=== PATIENT | female | born 1975 | race American Indian/Alaskan Native ===

== ENCOUNTER 2021-04-24 02:10 | Inpatient (IN) | payer OTHER ==
[2021-04-24 03:49] LABS: Alanine Aminotransferase 25 units/L (7-56); Albumin 5.1 g/dL (3.9-5); Blood Urea Nitrogen 10 mg/dL (7-17); Hemolysis Index 5
[2021-04-24] MEDS ORDERED: ONDANSETRON 4 MG/2 ML INJ IV ONE ×2 (03:56→07:24)
[2021-04-24] MEDS ORDERED: SODIUM CHLORIDE 0.9% 1000 ML 1,000 ML IV ONE ×2 (03:56→07:24)
[2021-04-24] MEDS ORDERED: MORPHINE 4 MG/1 ML INJ IV ONE (03:56)
--- NOTE | 2021-04-24 03:57 | Emergency Department Report ---
HPI - General Chief Complaint: Abdominal Pain Time Seen by Provider: 04/24/21 03:38 - HPI HPI: 45-year-old -[place] female presents to the emergency department with a complaint of middle to upper abdominal pain, nausea and vomiting, that has been going on for the past 3 days. The patient has history of recurrent pancreatitis that usually occurs from alcohol consumption. The patient says that she has not drink any alcohol for the past week. She has not taken anything for symptoms prior to presentation. No recent travel or sick contacts at home. Her abdominal pain is currently 10/10 in intensity. No aggravating or alleviating factors. She denies any dysuria, vaginal bleeding or discharge, fever, chest pain, shortness of breath. ED Past Medical Hx - Past Medical History Previous Medical History?: Yes Additional medical history: Pancreatitis. ETOH abuse - Surgical History Past Surgical History?: Yes Hx Cholecystectomy: Yes Additional Surgical History: . Tubal Ligation. Hernia repair - Social History Smoking Status: Never Smoker Substance Use Type: Alcohol - Medications Home Medications: Home Medications Medication Instructions Recorded Confirmed Last Taken Type No Known Home Medications [No 04/24/21 04/24/21 Unknown History Reported Home Medications] ED Review of Systems ROS: Stated complaint: VOMITING AND SHAKES Other details as noted in HPI Comment: All other systems reviewed and negative Constitutional: denies: chills, fever Eyes: denies: eye pain, vision change ENT: denies: ear pain, throat pain Respiratory: denies: cough, shortness of breath Cardiovascular: denies: chest pain, palpitations Gastrointestinal: abdominal pain, nausea, vomiting Genitourinary: denies: dysuria, discharge Musculoskeletal: denies: back pain, arthralgia Skin: denies: rash, lesions Neurological: denies: headache, weakness Physical Exam - Physical Exam Vital Signs: Vital Signs 04/24/21 02:25 Temperature 98.8 F Pulse Rate 144 H Blood Pressure 156/99 O2 Sat by Pulse 100 Oximetry Physical Exam: GENERAL: The patient is well-developed well-nourished. HENT: Normocephalic. Atraumatic. Patient has moist mucous membranes. EYES: Extraocular motions are intact. NECK: Supple. Trachea is midline. CHEST/LUNGS: Clear to auscultation. There is no respiratory distress noted. HEART/CARDIOVASCULAR: Regular. There is moderate tachycardia. There is no murmur. ABDOMEN: Abdomen is soft. Generalized abdominal tenderness to palpation with upper quadrants greater than lower quadrants. Mild guarding. Patient has normal bowel sounds. There is no abdominal distention. SKIN: Skin is warm and dry. NEURO: The patient is awake, alert, and oriented. The patient is cooperative. The patient has no focal neurologic deficits. Normal speech. MUSCULOSKELETAL: There is no tenderness or deformity. There is no limitation range of motion. ED Course Vital Signs 04/24/21 02:25 Temperature 98.8 F Pulse Rate 144 H Blood Pressure 156/99 O2 Sat by Pulse 100 Oximetry ED Medical Decision Making - Lab Data Result diagrams: 04/24/21 03:06 04/24/21 03:06 Lab Results 04/24/21 04/24/21 Range/Units 03:06 03:06 WBC 9.6 (4.5-11.0) K/mm3 RBC 4.86 (3.65-5.03) M/mm3 Hgb 9.2 L (10.1-14.3) gm/dl Hct 31.1 (30.3-42.9) % MCV 64 L (79-97) fl MCH 19 L (28-32) pg MCHC 29 L (30-34) % RDW 22.3 H (13.2-15.2) % Plt Count 311 (140-440) K/mm3 Lymph % (Auto) Test Center Manager [place] % (Auto) Test Center Manager Eos % (Auto) Test Center Manager Baso % (Auto) Test Center Manager Lymph # (Auto) Test Center Manager [place] # (Auto) Test Center Manager Eos # (Auto) Test Center Manager Baso # (Auto) Test Center Manager Add Manual Diff Complete Total Counted 100 Seg Neutrophils % Test Center Manager Seg Neuts % (Manual) 85.0 H (40.0-70.0) % Lymphocytes % (Manual) 11.0 L (13.4-35.0) % Monocytes % (Manual) 2.0 (0.0-7.3) % Eosinophils % (Manual) 2.0 (0.0-4.3) % Nucleated RBC % Not Reportable Seg Neutrophils # Test Center Manager Seg Neutrophils # Man 8.2 H (1.8-7.7) K/mm3 Band Neutrophils # 0.0 K/mm3 Lymphocytes # (Manual) 1.1 L (1.2-5.4) K/mm3 Abs React Lymphs (Man) 0.0 K/mm3 Monocytes # (Manual) 0.2 (0.0-0.8) K/mm3 Eosinophils # (Manual) 0.2 (0.0-0.4) K/mm3 Basophils # (Manual) 0.0 (0.0-0.1) K/mm3 Metamyelocytes # 0.0 K/mm3 Myelocytes # 0.0 K/mm3 Promyelocytes # 0.0 K/mm3 Blast Cells # 0.0 K/mm3 WBC Morphology Not Reportable Hypersegmented Neuts Not Reportable Hyposegmented Neuts Not Reportable Hypogranular Neuts Not Reportable Smudge Cells Not Reportable Toxic Granulation Not Reportable Toxic Vacuolation Not Reportable Dohle Bodies Not Reportable Pelger-Huet Anomaly Not Reportable Libra Rods Not Reportable Platelet Estimate Consistent w auto Clumped Platelets Not Reportable Plt Clumps, EDTA Not Reportable Large Platelets Not Reportable Giant Platelets Not Reportable Platelet Satelliting Not Reportable Plt Morphology Comment Not Reportable RBC Morphology Not Reportable Dimorphic RBCs Not Reportable Polychromasia Not Reportable Hypochromasia 1+ Poikilocytosis Not Reportable Anisocytosis 1+ Microcytosis 1+ Macrocytosis Not Reportable Spherocytes Not Reportable Pappenheimer Bodies Not Reportable Sickle Cells Not Reportable Target Cells Not Reportable Tear Drop Cells Not Reportable Ovalocytes Not Reportable Helmet Cells Not Reportable [place] Bodies Not Reportable [place] Rings Not Reportable [place] Cells Not Reportable Bite Cells Not Reportable Crenated Cell Not Reportable Elliptocytes Not Reportable Acanthocytes (Spur) Not Reportable Rouleaux Not Reportable Hemoglobin C Crystals Not Reportable Schistocytes Not Reportable Malaria parasites Not Reportable Adam Bodies Not Reportable Hem Pathologist Commnt No Sodium 132 L (137-145) mmol/L Potassium 3.3 L (3.6-5.0) mmol/L Chloride 92.8 L (98-107) mmol/L Carbon Dioxide 18 L (22-30) mmol/L Anion Gap 25 mmol/L BUN 10 (7-17) mg/dL Creatinine 0.6 (0.6-1.2) mg/dL Estimated GFR > 60 ml/min BUN/Creatinine Ratio 17 % Glucose 126 H (65-100) mg/dL Calcium 12.3 H* (8.4-10.2) mg/dL Total Bilirubin 0.60 (0.1-1.2) mg/dL AST 28 (5-40) units/L ALT 25 (7-56) units/L Alkaline Phosphatase 103 (35-129) units/L Total Protein 9.4 H (6.3-8.2) g/dL Albumin 5.1 H (3.9-5) g/dL Albumin/Globulin Ratio 1.2 % Lipase 662 H (13-60) units/L - Radiology Data Radiology results: report reviewed CT abdomen pelvis w con INDICATION / CLINICAL INFORMATION: Abd pain, hx of pancreatitis. TECHNIQUE: Axial CT images were obtained through the abdomen and pelvis after 100 cc of Omnipaque [address] scans at this location are performed using CT dose reduction for ALARA by means of automated exposure control. COMPARISON: None available. FINDINGS: LOWER CHEST: No significant abnormality LIVER: No significant abnormality GALLBLADDER/BILIARY TREE: Cholecystectomy. PANCREAS: Mild diffuse peripancreatic inflammatory stranding and unencapsulated fluid. No organized collection. SPLEEN: No significant a bnormality ADRENALS: No significant abnormality KIDNEYS / URETER: No significant abnormality URINARY BLADDER: No significant abnormality REPRODUCTIVE ORGANS: Uterine fibroid. No suspicious adnexal mass. STOMACH / BOWEL: No significant abnormality. The appendix is normal in caliber. LYMPH NODES: No significant adenopathy. VASCULATURE: No significant abnormality. OTHER: No free air, free fluid, or focal fluid collection is identified. SKELETAL SYSTEM: No acute osseous findings. IMPRESSION: 1. Mild acute interstitial edematous pancreatitis. No organized collection. 2. No other acute abnormality. - Medical Decision Making This patient presents with a 3-day history of progressively worsening abdominal pain, nausea with vomiting. On examination she has reproducible abdominal tenderness to palpation with some mild guarding. Patient also has moderate tac hycardia with an initial triage heart rate of about 140 bpm. Patient's labs shows hypercalcemia with a level of about 12, and elevated lipase of greater than 600. This appears consistent with acute pancreatitis. Patient has been given IV analgesia, IV fluid resuscitation, IV antiemetics. CT of the abdomen pelvis with IV contrast shows acute pancreatitis. No fluid collection. Patient will be admitted to the hospital for further evaluation and treatment was accepted for admission by the hospitalist service. Critical Care Time: No Critical care attestation.: If time is entered above; I have spent that time in minutes in the direct care of this critically ill patient, excluding procedure time. ED Disposition Clinical Impression: Hypokalemia Acute pancreatitis Qualifiers: Pancreatitis type: unspecified pancreatitis type Acute pancreatitis complication: unspecified Qualified Code(s): K85.90 - Acute pancreatitis without necrosis or infection, unspecified Anemia Qualifiers: Anemia type: unspecified type Qualified Code(s): D64.9 - Anemia, unspecified Disposition: 09 ADMITTED INPATIENT Is pt being admited?: No Condition: Fair
[2021-04-24 04:03] LABS: BUN/Creatinine Ratio 17; Calcium 12.3 mg/dL (8.4-10.2)
[2021-04-24 04:22] LABS: Mean Corpuscular HGB Conc 29 % (30-34); Platelet Count 311 K/mm3 (140-440); Red Blood Count 4.86 M/mm3 (3.65-5.03)
[2021-04-24 04:24] LABS: Hematocrit 31.1 % (30.3-42.9); Hemoglobin 9.2 gm/dl (10.1-14.3); Mean Corpuscular Volume 64 fl (79-97)
[2021-04-24 04:25] LABS: Red Cell Distribution Width 22.3 % (13.2-15.2)
[2021-04-24 05:12] LABS: Total Cells Counted 100
[2021-04-24 05:14] LABS: Anisocytosis 1+; Hypochromasia 1+; Platelet Estimate Consistent w Auto
[2021-04-24] MEDS: POTASSIUM CHLORIDE 10 MEQ 10 MEQ/100 ML BAG IV SCH ×2 (05:20→07:31)
--- NOTE | 2021-04-24 06:14 | Cat Scan Report ---
CT abdomen pelvis w con INDICATION / CLINICAL INFORMATION: Abd pain, hx of pancreatitis. TECHNIQUE: Axial CT images were obtained through the abdomen and pelvis after 100 cc of Omnipaque [address] scans at this location are performed using CT dose reduction for ALARA by means of automated exposure control. COMPARISON: None available. FINDINGS: LOWER CHEST: No significant abnormality LIVER: No significant abnormality GALLBLADDER/BILIARY TREE: Cholecystectomy. PANCREAS: Mild diffuse peripancreatic inflammatory stranding and unencapsulated fluid. No organized c ollection. SPLEEN: No significant abnormality ADRENALS: No significant abnormality KIDNEYS / URETER: No significant abnormality URINARY BLADDER: No significant abnormality REPRODUCTIVE ORGANS: Uterine fibroid. No suspicious adnexal mass. STOMACH / BOWEL: No significant abnormality. The appendix is normal in caliber. LYMPH NODES: No significant adenopathy. VASCULATURE: No significant abnormality. OTHER: No free air, free fluid, or focal fluid collection is identified. SKELETAL SYSTEM: No acute osseous findings. IMPRESSION: 1. Mild acute interstitial edematous pancreatitis. No organized collection. 2. No other acute abnormality. Signer Name: George Marcelo MD Signed: 04/24/2021 6:09 AM Workstation Name: [id number]
[2021-04-24] MEDS ORDERED: HYDROmorphone 1 MG/1 ML INJ IV ONE (07:24)
--- NOTE | 2021-04-24 10:41 | History and Physical Report ---
History of Present Illness Date of examination: 04/24/21 Date of admission: 04/24/2021 Chief complaint: Abdominal pain for 3 days History of present illness: 45-year-old female with history of pancreatitis and alcohol abuse comes in for epigastric pain associated with nausea and vomiting. Pain is about 8 on a scale of 1-10. Pain has been going on for the last 3 days. Patient has a history of recurrent pancreatitis. Patient has not been drinking any alcohol for the past 1 week. No recent travel no recent fever. Pain is 0/10 on a scale of 1-10. No shortness of breath. No chest pain. No diarrhea. No exposure to coronavirus. - Past Medical History Previous Medical History?: Yes Additional medical history: Pancreatitis. ETOH abuse - Surgical History Past Surgical History?: Yes --Cholecystectomy: Yes --Additional Surgical History: . Tubal Ligation. Hernia repair Family history Htn - Social History Smoking Status: Never Smoker Substance Use Type: Alcohol - Medications Home Medications: Home Medications Medication Instructions Recorded Confirmed Last Taken Type No Known Home Medications [No 04/24/21 04/24/21 Unknown History Reported Home Medications] Review of Systems ROS: Stated complaint: VOMITING AND SHAKES Other details as noted in HPI Comment: All other systems reviewed and negative Constitutional: denies: chills, fever Eyes: denies: eye pain, vision change ENT: denies: ear pain, throat pain Respiratory: denies: cough, shortness of breath Cardiovascular: denies: chest pain, palpitations Gastrointestinal: abdominal pain, nausea, vomiting Genitourinary: denies: dysuria, discharge Musculoskeletal: denies: back pain, arthralgia Skin: denies: rash, lesions Neurological: denies: headache, weakness Medications and Allergies Allergies Allergy/AdvReac Type Severity Reaction Status Date / Time No Known Allergies Allergy Unverified 04/24/21 02:47 Home Medications Medication Instructions Recorded Confirmed Last Taken Type No Known Home Medications [No 04/24/21 04/24/21 Unknown History Reported Home Medications] Exam - Constitutional Vitals: Temp Pulse Resp BP Pulse Ox 98.6 F 108 H 13 156/99 100 04/24/21 08:47 04/24/21 08:47 04/24/21 08:47 04/24/21 02:25 04/24/21 08:47 General appearance: Present: mild distress, well-nourished - EENT Eyes: Present: PERRL ENT: hearing intact, clear oral mucosa - Neck Neck: Present: supple, normal ROM - Respiratory Respiratory effort: normal Respiratory: bilateral: CTA - Cardiovascular Heart rate: 78 Rhythm: regular Heart Sounds: Present: S1 & S2. Absent: rub, click - Extremities Extremities: pulses symmetrical, No edema Peripheral Pulses: within normal limits - Abdominal General gastrointestinal: Present: tender, non-distended, normal bowel sounds Localized gastrointestinal: tender: diffuse, guarding: diffuse Female genitourinary: Present: normal - Rectal Rectal Exam: deferred - Integumentary Integumentary: Present: clear, warm, dry - Musculoskeletal Musculoskeletal: gait normal, strength equal bilaterally - Psychiatric Psychiatric: appropriate mood/affect, intact judgment & insight - Neurologic Neurologic: CNII-XII intact, moves all extremities - Allied Health Allied health notes reviewed: nursing Results - Labs CBC & Chem 7: 04/25/21 04:34 04/25/21 04:34 Labs: Laboratory Last Values WBC 9.6 K/mm3 (4.5-11.0) 04/24/21 03:06 RBC 4.86 M/mm3 (3.65-5.03) 04/24/21 03:06 Hgb 9.2 gm/dl (10.1-14.3) L 04/24/21 03:06 Hct 31.1 % (30.3-42.9) 04/24/21 03:06 MCV 64 fl (79-97) L 04/24/21 03:06 MCH 19 pg (28-32) L 04/24/21 03:06 MCHC 29 % (30-34) L 04/24/21 03:06 RDW 22.3 % (13.2-15.2) H 04/24/21 03:06 Plt Count 311 K/mm3 (140-440) 04/24/21 03:06 Lymph % (Auto) [facility] Profession[facility] 04/24/21 03:06 [place] % (Auto) [facility] 04/24/21 03:06 Eos % (Auto) [facility] 04/24/21 03:06 Baso % (Auto) [facility] 04/24/21 03:06 Lymph # (Auto) [facility] 04/24/21 03:06 [place] # (Auto) [facility] 04/24/21 03:06 Eos # (Auto) [facility] 04/24/21 03:06 Baso # (Auto) [facility] 04/24/21 03:06 Add Manual Diff Complete 04/24/21 03:06 Total Counted 100 04/24/21 03:06 Seg Neutrophils % [facility] 04/24/21 03:06 Seg Neuts % (Manual) 85.0 % (40.0-70.0) H 04/24/21 03:06 Lymphocytes % (Manual) 11.0 % (13.4-35.0) L 04/24/21 03:06 Monocytes % (Manual) 2.0 % (0.0-7.3) 04/24/21 03:06 Eosinophils % (Manual) 2.0 % (0.0-4.3) 04/24/21 03:06 Nucleated RBC % Not Reportable 04/24/21 03:06 Seg Neutrophils # [facility] 04/24/21 03:06 Seg Neutrophils # Man 8.2 K/mm3 (1.8-7.7) H 04/24/21 03:06 Band Neutrophils # 0.0 K/mm3 04/24/21 03:06 Lymphocytes # (Manual) 1.1 K/mm3 (1.2-5.4) L 04/24/21 03:06 Abs React Lymphs (Man) 0.0 K/mm3 04/24/21 03:06 Monocytes # (Manual) 0.2 K/mm3 (0.0-0.8) 04/24/21 03:06 Eosinophils # (Manual) 0.2 K/mm3 (0.0-0.4) 04/24/21 03:06 Basophils # (Manual) 0.0 K/mm3 (0.0-0.1) 04/24/21 03:06 Metamyelocytes # 0.0 K/mm3 04/24/21 03:06 Myelocytes # 0.0 K/mm3 04/24/21 03:06 Promyelocytes # 0.0 K/mm3 04/24/21 03:06 Blast Cells # 0.0 K/mm3 04/24/21 03:06 WBC Morphology Not Reportable 04/24/21 03:06 Hypersegmented Neuts Not Reportable 04/24/21 03:06 Hyposegmented Neuts Not Reportable 04/24/21 03:06 Hypogranular Neuts Not Reportable 04/24/21 03:06 Smudge Cells Not Reportable 04/24/21 03:06 Toxic Granulation Not Reportable 04/24/21 03:06 Toxic Vacuolation Not Reportable 04/24/21 03:06 Dohle Bodies Not Reportable 04/24/21 03:06 Pelger-Huet Anomaly Not Reportable 04/24/21 03:06 Libra Rods Not Reportable 04/24/21 03:06 Platelet Estimate Consistent w auto 04/24/21 03:06 Clumped Platelets Not Reportable 04/24/21 03:06 Plt Clumps, EDTA Not Reportable 04/24/21 03:06 Large Platelets Not Reportable 04/24/21 03:06 Giant Platelets Not Reportable 04/24/21 03:06 Platelet Satelliting Not Reportable 04/24/21 03:06 Plt Morphology Comment Not Reportable 04/24/21 03:06 RBC Morphology Not Reportable 04/24/21 03:06 Dimorphic RBCs Not Reportable 04/24/21 03:06 Polychromasia Not Reportable 04/24/21 03:06 Hypochromasia 1+ 04/24/21 03:06 Poikilocytosis Not Reportable 04/24/21 03:06 Anisocytosis 1+ 04/24/21 03:06 Microcytosis 1+ 04/24/21 03:06 Macrocytosis Not Reportable 04/24/21 03:06 Spherocytes Not Reportable 04/24/21 03:06 Pappenheimer Bodies Not Reportable 04/24/21 03:06 Sickle Cells Not Reportable 04/24/21 03:06 Target Cells Not Reportable 04/24/21 03:06 Tear Drop Cells Not Reportable 04/24/21 03:06 Ovalocytes Not Reportable 04/24/21 03:06 Helmet Cells Not Reportable 04/24/21 03:06 [place] Bodies Not Reportable 04/24/21 03:06 [place] Rings Not Reportable 04/24/21 03:06 [place] Cells Not Reportable 04/24/21 03:06 Bite Cells Not Reportable 04/24/21 03:06 Crenated Cell Not Reportable 04/24/21 03:06 Elliptocytes Not Reportable 04/24/21 03:06 Acanthocytes (Spur) Not Reportable 04/24/21 03:06 Rouleaux Not Reportable 04/24/21 03:06 Hemoglobin C Crystals Not Reportable 04/24/21 03:06 Schistocytes Not Reportable 04/24/21 03:06 Malaria parasites Not Reportable 04/24/21 03:06 Adam Bodies Not Reportable 04/24/21 03:06 Hem Pathologist Commnt No 04/24/21 03:06 Sodium 132 mmol/L (137-145) L 04/24/21 03:06 Potassium 3.3 mmol/L (3.6-5.0) L 04/24/21 03:06 Chloride 92.8 mmol/L (98-107) L 04/24/21 03:06 Carbon Dioxide 18 mmol/L (22-30) L 04/24/21 03:06 Anion Gap 25 mmol/L 04/24/21 03:06 BUN 10 mg/dL (7-17) 04/24/21 03:06 Creatinine 0.6 mg/dL (0.6-1.2) 04/24/21 03:06 Estimated GFR > 60 ml/min 04/24/21 03:06 BUN/Creatinine Ratio 17 % 04/24/21 03:06 Glucose 126 mg/dL (65-100) H 04/24/21 03:06 Calcium 12.3 mg/dL (8.4-10.2) H* 04/24/21 03:06 Total Bilirubin 0.60 mg/dL (0.1-1.2) 04/24/21 03:06 AST 28 units/L (5-40) 04/24/21 03:06 ALT 25 units/L (7-56) 04/24/21 03:06 Alkaline Phosphatase 103 units/L (35-129) 04/24/21 03:06 Total Protein 9.4 g/dL (6.3-8.2) H 04/24/21 03:06 Albumin 5.1 g/dL (3.9-5) H 04/24/21 03:06 Albumin/Globulin Ratio 1.2 % 04/24/21 03:06 Lipase 662 units/L (13-60) H 04/24/21 03:06 Short CBC 04/25/21 Range/Units 04:34 WBC 5.1 (4.5-11.0) K/mm3 Hgb 7.5 L (10.1-14.3) gm/dl Hct 25.2 L (30.3-42.9) % Plt Count 171 (140-440) K/mm3 BMP 04/25/21 04:34 Sodium 137 Potassium 3.0 L Chloride 101.8 Carbon Dioxide 23 BUN 7 Creatinine 0.4 L Glucose 113 H Calcium 10.3 H D Liver Function 04/25/21 Range/Units 04:34 Total Bilirubin 0.40 (0.1-1.2) mg/dL AST 18 (5-40) units/L ALT 15 (7-56) units/L Alkaline Phosphatase 76 (35-129) units/L Albumin 3.7 L (3.9-5) g/dL Urine 04/24/21 Range/Units Unknown Urine Color Red (Yellow) Urine pH 6.0 (5.0-7.0) Ur Specific [place] 1.060 H (1.003-1.030) Urine Protein 100 mg/dl (Negative) mg/dL Urine Glucose (UA) 50 (Negative) mg/dL - Imaging and Cardiology CT scan - abdomen: report reviewed Imaging and Cardiology: Abdominal CAT scan Mild acute interstitial edematous pancreatitis no evidence collection no other acute abnormality Assessment and Plan Advance Directives: Yes (Full code) VTE prophylaxis?: Chemical Plan of care discussed with patient/family: Yes - Patient Problems (1) Acute pancreatitis Current Visit: Yes Status: Acute Qualifiers: Pancreatitis type: unspecified pancreatitis type Acute pancreatitis complication: unspecified Qualified Code(s): K85.90 - Acute pancreatitis without necrosis or infection, unspecified Plan to address problem: Pain management Keep the patient n.p.o. IV fluids for now Recheck lipase levels (2) Hypokalemia Current Visit: Yes Status: Acute Plan to address problem: Supplemented (3) Anemia Current Visit: Yes Status: Chronic Qualifiers: Anemia type: unspecified type Qualified Code(s): D64.9 - Anemia, unspecified Plan to address problem: Anemia work-up Probable iron deficiency anemia Patient has microcytosis (4) Hypercalcemia Current Visit: Yes Status: Acute Plan to address problem: IV fluids for now Recheck calcium level (5) Hyponatremia Current Visit: Yes Status: Acute Plan to address problem: IV normal saline for now (6) DVT prophylaxis Current Visit: Yes Status: Acute Plan to address problem: On heparin and GI prophylaxis
[2021-04-24] MEDS ORDERED: ACETAMINOPHEN 325 MG TAB PO PRN (10:54)
[2021-04-24] MEDS ORDERED: ONDANSETRON 4 MG/2 ML INJ IV PRN (10:54)
[2021-04-24] MEDS ORDERED: METOCLOPRAMIDE 10 MG/2 ML INJ IV PRN (10:54)
[2021-04-24] MEDS ORDERED: HYDROmorphone 1 MG/1 ML INJ IV PRN (10:54)
[2021-04-24 12:14] LABS: Bacteria,Urine 4+ /HPF (Negative); Bilirubin,Urine NEG (Negative); Blood,Urine LG (Negative); Color,Urine Red (Yellow); Urobilinogen,Urine < 2.0 mg/dL (<2.0)
[2021-04-24] MEDS: FAMOTIDINE 20 MG/2 ML INJ IV SCH ×2 (12:29→21:43)
[2021-04-24] MEDS: HEPARIN 5,000 UNIT/1 ML VIAL SUB-Q SCH ×2 (12:29→21:44)
[2021-04-24] MEDS: MORPHINE 2 MG/1 ML INJ IV PRN ×2 (12:29→16:39)
[2021-04-24 12:49] LABS: RBC,Urine > 182.0 /HPF (0.0-6.0); WBC,Urine < 1.0 /HPF (0.0-6.0)
[2021-04-24] MEDS ORDERED: hydrALAZINE 20 MG/1 ML INJ IV PRN (14:22)
[2021-04-24] MEDS ORDERED: cloNIDine TTS 0.2 MG/24 HR PATCH TD SCH (15:00)
[2021-04-24] MEDS ORDERED: LORazepam 2 MG/ML VIAL IV PRN (19:40)
[2021-04-24] MEDS: D5W/0.9% NACL 1,000 ML IV SCH (21:43)
[2021-04-25 05:15] LABS: Hematocrit 25.2 % (30.3-42.9); Hemoglobin 7.5 gm/dl (10.1-14.3); Mean Corpuscular HGB Conc 30 % (30-34); Red Blood Count 3.98 M/mm3 (3.65-5.03)
[2021-04-25 05:16] LABS: Basophils % (Auto) 0.5 % (0.0-1.8); Eosinophils % (Auto) 0.3 % (0.0-4.3); Lymphocytes % (Auto) 20.2 % (13.4-35.0); Monocytes # (Auto) 0.5 K/mm3 (0.0-0.8); Monocytes % (Auto) 10.7 % (0.0-7.3); Platelet Count 171 K/mm3 (140-440)
[2021-04-25 05:21] LABS: Mean Corpuscular Volume 63 fl (79-97); Red Cell Distribution Width 22.7 % (13.2-15.2)
[2021-04-25 06:03] LABS: Alanine Aminotransferase 15 units/L (7-56); Albumin 3.7 g/dL (3.9-5); Blood Urea Nitrogen 7 mg/dL (7-17); Calcium 10.3 mg/dL (8.4-10.2); Hemolysis Index 1
[2021-04-25 06:07] LABS: BUN/Creatinine Ratio 18
[2021-04-25] MEDS ORDERED: LORazepam 2 MG/ML VIAL IV PRN (06:41)
[2021-04-25] MEDS: FAMOTIDINE 20 MG/2 ML INJ IV SCH ×2 (09:45→22:53)
[2021-04-25] MEDS: HEPARIN 5,000 UNIT/1 ML VIAL SUB-Q SCH ×2 (09:45→22:53)
[2021-04-25] MEDS: MORPHINE 2 MG/1 ML INJ IV PRN ×2 (09:45→15:26)
[2021-04-25] MEDS: D5W/0.9% NACL 1,000 ML IV SCH (09:46)
[2021-04-25 09:57] LABS: % Iron Saturation 2.39 %
--- NOTE | 2021-04-25 10:46 | Progress Note ---
Assessment and Plan Assessment and plan: --Acute pancreatitis Current Visit: Yes Status: Acute Continue sips of water ,pain management IV fluids, check lipase levels and LFTs Consider GI evaluation if no improvement --Hypokalemia Current Visit: Yes Status: Acute Replenished with KCl monitor electrolytes --Anemia Current Visit: Yes Status: Chronic Anemia work-up Closely monitor H&H and transfuse as needed -- Hypercalcemia Current Visit: Yes Status: Acute Due to dehydration continue IV fluids Closely monitor calcium levels -- Hyponatremia Current Visit: Yes Status: Acute Resolved , continue IV normal saline , monitor electrolytes --History of alcohol use; Current Visit: Yes Status: Chronic Advised to quit alcohol intake, Closely monitor for any withdrawal symptoms And consider CIWA protocol if needed --DVT prophylaxis Current Visit: Yes Status: Acute On heparin and GI prophylaxis Closely monitor patient and adjust management as needed Plan of care reviewed with the patient and her nurse History Interval history: I seen and examined the patient at the bedside Patient's chart and medications reviewed Patient complains of some abdominal pain Hospitalist Physical - Constitutional Vitals: Temp Pulse Resp BP Pulse Ox 98.2 F 124 H 20 138/96 100 04/25/21 08:18 04/25/21 08:18 04/25/21 08:18 04/25/21 08:18 04/25/21 08:18 General appearance: Present: mild distress, well-nourished - EENT Eyes: Present: PERRL, EOM intact - Neck Neck: Present: supple, normal ROM - Respiratory Respiratory effort: normal Respiratory: bilateral: diminished, negative: rales, rhonchi, wheezing - Cardiovascular Rhythm: regular Heart Sounds: Present: S1 & S2 - Extremities Extremities: no ischemia, No edema - Abdominal General gastrointestinal: soft, tender (No guarding no rigidity), normal bowel sounds - Integumentary Integumentary: Present: clear, warm - Psychiatric Psychiatric: appropriate mood/affect, cooperative - Neurologic Neurologic: CNII-XII intact, moves all extremities Results - Labs CBC & Chem 7: 04/25/21 04:34 04/25/21 04:34 Labs: Laboratory Last Values WBC 5.1 K/mm3 (4.5-11.0) 04/25/21 04:34 RBC 3.98 M/mm3 (3.65-5.03) 04/25/21 04:34 Hgb 7.5 gm/dl (10.1-14.3) L 04/25/21 04:34 Hct 25.2 % (30.3-42.9) L 04/25/21 04:34 MCV 63 fl (79-97) L 04/25/21 04:34 MCH 19 pg (28-32) L 04/25/21 04:34 MCHC 30 % (30-34) 04/25/21 04:34 RDW 22.7 % (13.2-15.2) H 04/25/21 04:34 Plt Count 171 K/mm3 (140-440) 04/25/21 04:34 Lymph % (Auto) 20.2 % (13.4-35.0) 04/25/21 04:34 [place] % (Auto) 10.7 % (0.0-7.3) H 04/25/21 04:34 Eos % (Auto) 0.3 % (0.0-4.3) 04/25/21 04:34 Baso % (Auto) 0.5 % (0.0-1.8) 04/25/21 04:34 Lymph # (Auto) 1.0 K/mm3 (1.2-5.4) L 04/25/21 04:34 [place] # (Auto) 0.5 K/mm3 (0.0-0.8) 04/25/21 04:34 Eos # (Auto) 0.0 K/mm3 (0.0-0.4) 04/25/21 04:34 Baso # (Auto) 0.0 K/mm3 (0.0-0.1) 04/25/21 04:34 Add Manual Diff Complete 04/24/21 03:06 Total Counted 100 04/24/21 03:06 Seg Neutrophils % 68.3 % (40.0-70.0) 04/25/21 04:34 Seg Neuts % (Manual) 85.0 % (40.0-70.0) H 04/24/21 03:06 Lymphocytes % (Manual) 11.0 % (13.4-35.0) L 04/24/21 03:06 Monocytes % (Manual) 2.0 % (0.0-7.3) 04/24/21 03:06 Eosinophils % (Manual) 2.0 % (0.0-4.3) 04/24/21 03:06 Nucleated RBC % Not Reportable 04/24/21 03:06 Seg Neutrophils # 3.5 K/mm3 (1.8-7.7) 04/25/21 04:34 Seg Neutrophils # Man 8.2 K/mm3 (1.8-7.7) H 04/24/21 03:06 Band Neutrophils # 0.0 K/mm3 04/24/21 03:06 Lymphocytes # (Manual) 1.1 K/mm3 (1.2-5.4) L 04/24/21 03:06 Abs React Lymphs (Man) 0.0 K/mm3 04/24/21 03:06 Monocytes # (Manual) 0.2 K/mm3 (0.0-0.8) 04/24/21 03:06 Eosinophils # (Manual) 0.2 K/mm3 (0.0-0.4) 04/24/21 03:06 Basophils # (Manual) 0.0 K/mm3 (0.0-0.1) 04/24/21 03:06 Metamyelocytes # 0.0 K/mm3 04/24/21 03:06 Myelocytes # 0.0 K/mm3 04/24/21 03:06 Promyelocytes # 0.0 K/mm3 04/24/21 03:06 Blast Cells # 0.0 K/mm3 04/24/21 03:06 WBC Morphology Not Reportable 04/24/21 03:06 Hypersegmented Neuts Not Reportable 04/24/21 03:06 Hyposegmented Neuts Not Reportable 04/24/21 03:06 Hypogranular Neuts Not Reportable 04/24/21 03:06 Smudge Cells Not Reportable 04/24/21 03:06 Toxic Granulation Not Reportable 04/24/21 03:06 Toxic Vacuolation Not Reportable 04/24/21 03:06 Dohle Bodies Not Reportable 04/24/21 03:06 Pelger-Huet Anomaly Not Reportable 04/24/21 03:06 Libra Rods Not Reportable 04/24/21 03:06 Platelet Estimate Consistent w auto 04/24/21 03:06 Clumped Platelets Not Reportable 04/24/21 03:06 Plt Clumps, EDTA Not Reportable 04/24/21 03:06 Large Platelets Not Reportable 04/24/21 03:06 Giant Platelets Not Reportable 04/24/21 03:06 Platelet Satelliting Not Reportable 04/24/21 03:06 Plt Morphology Comment Not Reportable 04/24/21 03:06 RBC Morphology Not Reportable 04/24/21 03:06 Dimorphic RBCs Not Reportable 04/24/21 03:06 Polychromasia Not Reportable 04/24/21 03:06 Hypochromasia 1+ 04/24/21 03:06 Poikilocytosis Not Reportable 04/24/21 03:06 Anisocytosis 1+ 04/24/21 03:06 Microcytosis 1+ 04/24/21 03:06 Macrocytosis Not Reportable 04/24/21 03:06 Spherocytes Not Reportable 04/24/21 03:06 Pappenheimer Bodies Not Reportable 04/24/21 03:06 Sickle Cells Not Reportable 04/24/21 03:06 Target Cells Not Reportable 04/24/21 03:06 Tear Drop Cells Not Reportable 04/24/21 03:06 Ovalocytes Not Reportable 04/24/21 03:06 Helmet Cells Not Reportable 04/24/21 03:06 [place] Bodies Not Reportable 04/24/21 03:06 [place] Rings Not Reportable 04/24/21 03:06 [place] Cells Not Reportable 04/24/21 03:06 Bite Cells Not Reportable 04/24/21 03:06 Crenated Cell Not Reportable 04/24/21 03:06 Elliptocytes Not Reportable 04/24/21 03:06 Acanthocytes (Spur) Not Reportable 04/24/21 03:06 Rouleaux Not Reportable 04/24/21 03:06 Hemoglobin C Crystals Not Reportable 04/24/21 03:06 Schistocytes Not Reportable 04/24/21 03:06 Malaria parasites Not Reportable 04/24/21 03:06 [place] Bodies Not Reportable 04/24/21 03:06 Hem Pathologist Commnt No 04/24/21 03:06 Sodium 137 mmol/L (137-145) 04/25/21 04:34 Potassium 3.0 mmol/L (3.6-5.0) L 04/25/21 04:34 Chloride 101.8 mmol/L (98-107) 04/25/21 04:34 Carbon Dioxide 23 mmol/L (22-30) 04/25/21 04:34 Anion Gap 15 mmol/L 04/25/21 04:34 BUN 7 mg/dL (7-17) 04/25/21 04:34 Creatinine 0.4 mg/dL (0.6-1.2) L 04/25/21 04:34 Estimated GFR > 60 ml/min 04/25/21 04:34 BUN/Creatinine Ratio 18 % 04/25/21 04:34 Glucose 113 mg/dL (65-100) H 04/25/21 04:34 Calcium 10.3 mg/dL (8.4-10.2) H D 04/25/21 04:34 Iron 7 ug/dL (37-170) L 04/25/21 08:57 TIBC 293 mcg/dL (250-450) 04/25/21 08:57 % Saturation 2.39 % 04/25/21 08:57 Transferrin 260 mg/dl (192-382) 04/25/21 08:57 Total Bilirubin 0.40 mg/dL (0.1-1.2) 04/25/21 04:34 AST 18 units/L (5-40) 04/25/21 04:34 ALT 15 units/L (7-56) 04/25/21 04:34 Alkaline Phosphatase 76 units/L (35-129) 04/25/21 04:34 Total Protein 7.5 g/dL (6.3-8.2) D 04/25/21 04:34 Albumin 3.7 g/dL (3.9-5) L 04/25/21 04:34 Albumin/Globulin Ratio 1.0 % 04/25/21 04:34 Lipase 662 units/L (13-60) H 04/24/21 03:06 Vitamin B12 366.1 pg/mL (211-911) 04/25/21 08:57 Urine Color Red (Yellow) 04/24/21 Unknown Urine Turbidity Clear (Clear) 04/24/21 Unknown Urine pH 6.0 (5.0-7.0) 04/24/21 Unknown Ur Specific [place] 1.060 (1.003-1.030) H 04/24/21 Unknown Urine Protein 100 mg/dl mg/dL (Negative) 04/24/21 Unknown Urine Glucose (UA) 50 mg/dL (Negative) 04/24/21 Unknown Urine Ketones Tr mg/dL (Negative) 04/24/21 Unknown Urine Blood Lg (Negative) 04/24/21 Unknown Urine Nitrite Neg (Negative) 04/24/21 Unknown Urine Bilirubin Neg (Negative) 04/24/21 Unknown Urine Urobilinogen < 2.0 mg/dL (<2.0) 04/24/21 Unknown Ur Leukocyte Esterase Neg (Negative) 04/24/21 Unknown Urine WBC (Auto) < 1.0 /HPF (0.0-6.0) 04/24/21 Unknown Urine RBC (Auto) > 182.0 /HPF (0.0-6.0) 04/24/21 Unknown U Epithel Cells (Auto) 4.0 /HPF (0-13.0) 04/24/21 Unknown Urine Bacteria (Auto) 4+ /HPF (Negative) 04/24/21 Unknown Cosme/IV: Voiding Method Toilet Active Medications - Current Medications Current Medications: Generic Name Dose Route Start Last Admin Trade Name Freq PRN Reason Stop Dose Admin Acetaminophen 650 mg 04/24/21 10:54 Acetaminophen 325 Mg Tab PO Q4H PRN Pain MILD(1-3)/Fever >100.5/MERAZ Clonidine HCl 0.2 mg 04/24/21 15:00 04/24/21 16:39 Clonidine Tts 0.2 Mg/24 Hr Patch TD 0.2 mg QWEEK ERICKA Administration Famotidine 20 mg 04/24/21 12:00 04/25/21 09:45 Famotidine 20 Mg/2 Ml Inj IV 20 mg BID ERICKA Administration Heparin Sodium (Porcine) 5,000 unit 04/24/21 12:00 04/25/21 09:45 Heparin 5,000 Unit/1 Ml Vial SUB-Q 5,000 unit Q12HR ERICKA Administration Hydralazine HCl 10 mg 04/24/21 14:22 Hydralazine 20 Mg/1 Ml Inj IV Q3H PRN Blood Pressure Hydromorphone HCl 1 mg 04/24/21 10:54 Hydromorphone 1 Mg/1 Ml Inj IV Q3H PRN Pain , Severe (7-10) Dextrose/Sodium Chloride 1,000 mls @ 100 mls/hr 04/24/21 11:00 04/25/21 09:46 D5ns IV 100 mls/hr DIRECT ERICKA Administration Lorazepam 2 mg 04/25/21 06:41 Lorazepam 2 Mg/Ml Vial IV Q1H PRN CIWA-Ar 8-15 Metoclopramide HCl 10 mg 04/24/21 10:54 Metoclopramide 10 Mg/2 Ml Inj IV Q6H PRN Nausea And Vomiting Morphine Sulfate 2 mg 04/24/21 10:54 04/25/21 09:45 Morphine 2 Mg/1 Ml Inj IV 2 mg Q4H PRN Administration Pain, Moderate (4-6) Ondansetron HCl 4 mg 04/24/21 12:00 Ondansetron 4 Mg/2 Ml Inj IV Q6H PRN Nausea And Vomiting Potassium Chloride 40 meq 04/25/21 11:00 Potassium Chloride Er 20 Meq Tab PO 04/25/21 14:01 Q3H ERICKA Sodium Chloride 10 ml 04/24/21 22:00 04/25/21 09:46 Sodium Chloride 0.9% 10 Ml Flush Syringe IV 10 ml BID ERICKA Administration Sodium Chloride 10 ml 04/24/21 10:54 Sodium Chloride 0.9% 10 Ml Flush Syringe IV PRN PRN LINE FLUSH
[2021-04-25] MEDS: POTASSIUM CHLORIDE ER 20 MEQ TAB PO SCH ×2 (15:26→17:55)
[2021-04-25] MEDS ORDERED: MAGNESIUM SULFATE 4 GM/100 ML BAG IV ONE (17:55)
[2021-04-25] MEDS: MAGNESIUM SULFATE 2 GM/50 ML BAG IV SCH ×2 (18:39→21:04)
[2021-04-25] MEDS: ONDANSETRON 4 MG/2 ML INJ IV PRN (18:40)
[2021-04-26] MEDS: D5W/0.9% NACL 1,000 ML IV SCH ×3 (00:02→18:27)
[2021-04-26] MEDS: ONDANSETRON 4 MG/2 ML INJ IV PRN ×3 (02:02→21:37)
[2021-04-26] MEDS: MORPHINE 2 MG/1 ML INJ IV PRN (04:06)
[2021-04-26 05:59] LABS: Blood Urea Nitrogen 3 mg/dL (7-17); Calcium 10.4 mg/dL (8.4-10.2); Hemolysis Index 7
[2021-04-26 06:07] LABS: BUN/Creatinine Ratio 8
--- NOTE | 2021-04-26 09:20 | Progress Note ---
Assessment and Plan Assessment and plan: --Acute pancreatitis Current Visit: Yes Status: Acute lipase levels trending down from 662 - 433-351 Continue clear liquids GI consult and supportive care --Hypokalemia Current Visit: Yes Status: Acute Potassium today 3.1, 40 mEq of KCl every 3 hours x2 Magnesium levels normal limits --Hypomagnesemia; Current Visit: Yes Status: Acute Mg 1.2 yesterday, replaced by magnesium sulfate Levels are normal range today at 1.9 --Anemia Current Visit: Yes Status: Chronic Anemia work-up Closely monitor H&H and transfuse as needed -- Hypercalcemia Current Visit: Yes Status: Acute Calcium levels trending down 12.3 -10.3-10.4 Plenty oral fluids, continue IV hydration Closely monitor electrolytes -- Hyponatremia Current Visit: Yes Status: Acute Resolved , continue IV normal saline , --History of alcohol use; Current Visit: Yes Status: Chronic Advised to quit alcohol intake, Closely monitor for any withdrawal symptoms And consider CIWA protocol if needed --DVT prophylaxis Current Visit: Yes Status: Acute On heparin and GI prophylaxis Closely monitor patient and adjust management as needed Plan of care reviewed with the patient and her nurse Daily hospital course; 45-year-old female patient with history of chronic alcohol use was admitted with acute pancreatitis and multiple electrolyte imbalances, patient feels slightly better , GI consulted, 04/26/2021; Follow GI consult, follow lipase and LFTs Continue clear liquids, supportive care Potassium corrected with KCl History Interval history: I have seen and examined the patient at the bedside patient's chart and medications reviewed Patient feels slightly better still has some abdominal pain Denies nausea vomiting Hospitalist Physical - Constitutional Vitals: Temp Pulse Resp BP Pulse Ox 98.7 F 103 H 20 151/102 100 04/26/21 07:50 04/26/21 07:50 04/26/21 07:50 04/26/21 07:50 04/26/21 07:50 General appearance: Present: no acute distress, well-nourished - EENT Eyes: Present: PERRL, EOM intact - Neck Neck: Present: supple, normal ROM - Respiratory Respiratory effort: normal Respiratory: bilateral: diminished, negative: rales, rhonchi, wheezing - Cardiovascular Rhythm: regular Heart Sounds: Present: S1 & S2 - Extremities Extremities: no ischemia, No edema - Abdominal General gastrointestinal: soft, non-tender, tender (Mild tenderness no guarding no rigidity), non-distended, normal bowel sounds - Integumentary Integumentary: Present: clear, warm - Psychiatric Psychiatric: appropriate mood/affect, cooperative - Neurologic Neurologic: CNII-XII intact, moves all extremities Results - Labs CBC & Chem 7: 04/25/21 04:34 04/26/21 05:01 Labs: Laboratory Last Values WBC 5.1 K/mm3 (4.5-11.0) 04/25/21 04:34 RBC 3.98 M/mm3 (3.65-5.03) 04/25/21 04:34 Hgb 7.5 gm/dl (10.1-14.3) L 04/25/21 04:34 Hct 25.2 % (30.3-42.9) L 04/25/21 04:34 MCV 63 fl (79-97) L 04/25/21 04:34 MCH 19 pg (28-32) L 04/25/21 04:34 MCHC 30 % (30-34) 04/25/21 04:34 RDW 22.7 % (13.2-15.2) H 04/25/21 04:34 Plt Count 171 K/mm3 (140-440) 04/25/21 04:34 Lymph % (Auto) 20.2 % (13.4-35.0) 04/25/21 04:34 [place] % (Auto) 10.7 % (0.0-7.3) H 04/25/21 04:34 Eos % (Auto) 0.3 % (0.0-4.3) 04/25/21 04:34 Baso % (Auto) 0.5 % (0.0-1.8) 04/25/21 04:34 Lymph # (Auto) 1.0 K/mm3 (1.2-5.4) L 04/25/21 04:34 [place] # (Auto) 0.5 K/mm3 (0.0-0.8) 04/25/21 04:34 Eos # (Auto) 0.0 K/mm3 (0.0-0.4) 04/25/21 04:34 Baso # (Auto) 0.0 K/mm3 (0.0-0.1) 04/25/21 04:34 Add Manual Diff Complete 04/24/21 03:06 Total Counted 100 04/24/21 03:06 Seg Neutrophils % 68.3 % (40.0-70.0) 04/25/21 04:34 Seg Neuts % (Manual) 85.0 % (40.0-70.0) H 04/24/21 03:06 Lymphocytes % (Manual) 11.0 % (13.4-35.0) L 04/24/21 03:06 Monocytes % (Manual) 2.0 % (0.0-7.3) 04/24/21 03:06 Eosinophils % (Manual) 2.0 % (0.0-4.3) 04/24/21 03:06 Nucleated RBC % Not Reportable 04/24/21 03:06 Seg Neutrophils # 3.5 K/mm3 (1.8-7.7) 04/25/21 04:34 Seg Neutrophils # Man 8.2 K/mm3 (1.8-7.7) H 04/24/21 03:06 Band Neutrophils # 0.0 K/mm3 04/24/21 03:06 Lymphocytes # (Manual) 1.1 K/mm3 (1.2-5.4) L 04/24/21 03:06 Abs React Lymphs (Man) 0.0 K/mm3 04/24/21 03:06 Monocytes # (Manual) 0.2 K/mm3 (0.0-0.8) 04/24/21 03:06 Eosinophils # (Manual) 0.2 K/mm3 (0.0-0.4) 04/24/21 03:06 Basophils # (Manual) 0.0 K/mm3 (0.0-0.1) 04/24/21 03:06 Metamyelocytes # 0.0 K/mm3 04/24/21 03:06 Myelocytes # 0.0 K/mm3 04/24/21 03:06 Promyelocytes # 0.0 K/mm3 04/24/21 03:06 Blast Cells # 0.0 K/mm3 04/24/21 03:06 WBC Morphology Not Reportable 04/24/21 03:06 Hypersegmented Neuts Not Reportable 04/24/21 03:06 Hyposegmented Neuts Not Reportable 04/24/21 03:06 Hypogranular Neuts Not Reportable 04/24/21 03:06 Smudge Cells Not Reportable 04/24/21 03:06 Toxic Granulation Not Reportable 04/24/21 03:06 Toxic Vacuolation Not Reportable 04/24/21 03:06 Dohle Bodies Not Reportable 04/24/21 03:06 Pelger-Huet Anomaly Not Reportable 04/24/21 03:06 Libra Rods Not Reportable 04/24/21 03:06 Platelet Estimate Consistent w auto 04/24/21 03:06 Clumped Platelets Not Reportable 04/24/21 03:06 Plt Clumps, EDTA Not Reportable 04/24/21 03:06 Large Platelets Not Reportable 04/24/21 03:06 Giant Platelets Not Reportable 04/24/21 03:06 Platelet Satelliting Not Reportable 04/24/21 03:06 Plt Morphology Comment Not Reportable 04/24/21 03:06 RBC Morphology Not Reportable 04/24/21 03:06 Dimorphic RBCs Not Reportable 04/24/21 03:06 Polychromasia Not Reportable 04/24/21 03:06 Hypochromasia 1+ 04/24/21 03:06 Poikilocytosis Not Reportable 04/24/21 03:06 Anisocytosis 1+ 04/24/21 03:06 Microcytosis 1+ 04/24/21 03:06 Macrocytosis Not Reportable 04/24/21 03:06 Spherocytes Not Reportable 04/24/21 03:06 Pappenheimer Bodies Not Reportable 04/24/21 03:06 Sickle Cells Not Reportable 04/24/21 03:06 Target Cells Not Reportable 04/24/21 03:06 Tear Drop Cells Not Reportable 04/24/21 03:06 Ovalocytes Not Reportable 04/24/21 03:06 Helmet Cells Not Reportable 04/24/21 03:06 [place] Bodies Not Reportable 04/24/21 03:06 [place] Rings Not Reportable 04/24/21 03:06 [place] Cells Not Reportable 04/24/21 03:06 Bite Cells Not Reportable 04/24/21 03:06 Crenated Cell Not Reportable 04/24/21 03:06 Elliptocytes Not Reportable 04/24/21 03:06 Acanthocytes (Spur) Not Reportable 04/24/21 03:06 Rouleaux Not Reportable 04/24/21 03:06 Hemoglobin C Crystals Not Reportable 04/24/21 03:06 Schistocytes Not Reportable 04/24/21 03:06 Malaria parasites Not Reportable 04/24/21 03:06 [place] Bodies Not Reportable 04/24/21 03:06 Hem Pathologist Commnt No 04/24/21 03:06 Sodium 137 mmol/L (137-145) 04/26/21 05:01 Potassium 3.1 mmol/L (3.6-5.0) L 04/26/21 05:01 Chloride 103.5 mmol/L (98-107) 04/26/21 05:01 Carbon Dioxide 24 mmol/L (22-30) 04/26/21 05:01 Anion Gap 13 mmol/L 04/26/21 05:01 BUN 3 mg/dL (7-17) L 04/26/21 05:01 Creatinine 0.4 mg/dL (0.6-1.2) L 04/26/21 05:01 Estimated GFR > 60 ml/min 04/26/21 05:01 BUN/Creatinine Ratio 8 % 04/26/21 05:01 Glucose 115 mg/dL (65-100) H 04/26/21 05:01 Calcium 10.4 mg/dL (8.4-10.2) H 04/26/21 05:01 Magnesium 1.90 mg/dL (1.7-2.3) 04/26/21 05:01 Iron 7 ug/dL (37-170) L 04/25/21 08:57 TIBC 293 mcg/dL (250-450) 04/25/21 08:57 % Saturation 2.39 % 04/25/21 08:57 Transferrin 260 mg/dl (192-382) 04/25/21 08:57 Total Bilirubin 0.40 mg/dL (0.1-1.2) 04/25/21 04:34 AST 18 units/L (5-40) 04/25/21 04:34 ALT 15 units/L (7-56) 04/25/21 04:34 Alkaline Phosphatase 76 units/L (35-129) 04/25/21 04:34 Total Protein 7.5 g/dL (6.3-8.2) D 04/25/21 04:34 Albumin 3.7 g/dL (3.9-5) L 04/25/21 04:34 Albumin/Globulin Ratio 1.0 % 04/25/21 04:34 Lipase 351 units/L (13-60) H 04/26/21 05:01 Vitamin B12 366.1 pg/mL (211-911) 04/25/21 08:57 Urine Color Red (Yellow) 04/24/21 Unknown Urine Turbidity Clear (Clear) 04/24/21 Unknown Urine pH 6.0 (5.0-7.0) 04/24/21 Unknown Ur Specific [place] 1.060 (1.003-1.030) H 04/24/21 Unknown Urine Protein 100 mg/dl mg/dL (Negative) 04/24/21 Unknown Urine Glucose (UA) 50 mg/dL (Negative) 04/24/21 Unknown Urine Ketones Tr mg/dL (Negative) 04/24/21 Unknown Urine Blood Lg (Negative) 04/24/21 Unknown Urine Nitrite Neg (Negative) 04/24/21 Unknown Urine Bilirubin Neg (Negative) 04/24/21 Unknown Urine Urobilinogen < 2.0 mg/dL (<2.0) 04/24/21 Unknown Ur Leukocyte Esterase Neg (Negative) 04/24/21 Unknown Urine WBC (Auto) < 1.0 /HPF (0.0-6.0) 04/24/21 Unknown Urine RBC (Auto) > 182.0 /HPF (0.0-6.0) 04/24/21 Unknown U Epithel Cells (Auto) 4.0 /HPF (0-13.0) 04/24/21 Unknown Urine Bacteria (Auto) 4+ /HPF (Negative) 04/24/21 Unknown Cosme/IV: Voiding Method Toilet Active Medications - Current Medications Current Medications: Generic Name Dose Route Start Last Admin Trade Name Freq PRN Reason Stop Dose Admin Acetaminophen 650 mg 04/24/21 10:54 Acetaminophen 325 Mg Tab PO Q4H PRN Pain MILD(1-3)/Fever >100.5/MERAZ Clonidine HCl 0.2 mg 05/01/21 13:00 Clonidine Tts 0.2 Mg/24 Hr Patch TD [place] ERICKA Famotidine 20 mg 04/24/21 12:00 04/25/21 22:53 Famotidine 20 Mg/2 Ml Inj IV 20 mg BID ERICKA Administration Heparin Sodium (Porcine) 5,000 unit 04/24/21 12:00 04/25/21 22:53 Heparin 5,000 Unit/1 Ml Vial SUB-Q 5,000 unit Q12HR ERICKA Administration Hydralazine HCl 10 mg 04/24/21 14:22 Hydralazine 20 Mg/1 Ml Inj IV Q3H PRN Blood Pressure Hydromorphone HCl 1 mg 04/24/21 10:54 Hydromorphone 1 Mg/1 Ml Inj IV Q3H PRN Pain , Severe (7-10) Dextrose/Sodium Chloride 1,000 mls @ 100 mls/hr 04/24/21 11:00 04/26/21 00:02 D5ns IV 100 mls/hr DIRECT ERICKA Administration Lorazepam 2 mg 04/25/21 06:41 Lorazepam 2 Mg/Ml Vial IV Q1H PRN CIWA-Ar 8-15 Metoclopramide HCl 10 mg 04/24/21 10:54 Metoclopramide 10 Mg/2 Ml Inj IV Q6H PRN Nausea And Vomiting Morphine Sulfate 2 mg 04/24/21 10:54 04/26/21 04:06 Morphine 2 Mg/1 Ml Inj IV 2 mg Q4H PRN Administration Pain, Moderate (4-6) Ondansetron HCl 4 mg 04/24/21 12:00 04/26/21 02:02 Ondansetron 4 Mg/2 Ml Inj IV 4 mg Q6H PRN Administration Nausea And Vomiting Potassium Chloride 40 meq 04/26/21 10:00 Potassium Chloride Er 20 Meq Tab PO 04/26/21 13:01 Q3H ERICKA Sodium Chloride 10 ml 04/24/21 22:00 04/25/21 22:53 Sodium Chloride 0.9% 10 Ml Flush Syringe IV 10 ml BID ERICKA Administration Sodium Chloride 10 ml 04/24/21 10:54 Sodium Chloride 0.9% 10 Ml Flush Syringe IV PRN PRN LINE FLUSH Nutrition/Malnutrition Assess - Dietary Evaluation Nutrition/Malnutrition Findings: Nutrition Notes Start: 04/25/21 15:21 Freq: Status: Active Protocol: Document 04/25/21 15:21 (Rec: 04/25/21 15:38 [id number]) Nutrition Notes Need for Assessment generated from: MD Order Initial or Follow up Assessment Other Pertinent Diagnosis acute pancreatitis, EtOH abuse , hypercalcemia Current Diet NPO Labs/Tests K 3 Ca 10.3 Pertinent Medications D5NS at 100 ml/hr Height 6 ft Weight 78.4 kg [place] Body Weight (kg) 72.72 BMI 23.4 Weight Status Appropriate Subjective/Other Information MD consult for ONS. RN screen for skin risk. Pt now NPO. Jonel score 19, no wounds noted in chart. Unable to speak with pt. Pt with N/V for 3 days [employer]. Burn Absent Trauma Absent Current % PO Negligible Minimum of two criteria No #1 Nutrition Diagnosis Inadequate oral intake Etiology acute pancreatitis As Evidenced by Signs and Symptoms pt NPO, N/V 3 days [employer] Is patient on ventilator? No Is Patient Ambulatory and/or Out of Bed Yes REE-([facility]-ambulatory/OOB) [ 1990.300 [id number]] Calculation Used for Recommendations [facility] Additional Notes Protein: (0.8-1g/kg) 63-78g Fluid: 1 ml/kcal Nutrition Intervention Change Diet Order: advance as able Add Supplement/Snack (indicate name/kcal Ensure HP TID when diet /protein ) advances Goal #1 diet advancement Anticipated Discharge Needs: Low fat Follow-Up By: 04/27/21 Additional Comments F/u: diet advacement and intakes
[2021-04-26] MEDS: FAMOTIDINE 20 MG/2 ML INJ IV SCH ×2 (09:31→21:37)
[2021-04-26] MEDS: POTASSIUM CHLORIDE ER 20 MEQ TAB PO SCH ×2 (09:31→12:19)
[2021-04-26] MEDS: HEPARIN 5,000 UNIT/1 ML VIAL SUB-Q SCH ×2 (09:31→21:37)
--- NOTE | 2021-04-26 15:05 | Gastroenterology Consultation ---
History of Present Illness - Reason for Consult Consult date: 04/26/21 Pancreatitis Requesting physician: CRISTOFER WHITAKER - History of Present Illness The patient is a 45 yo female with recurrent acute pancreatitis; her last hospitalization by her report was at [facility] in [place]. She has a hx of long- term binge EtOH use. She has had a prior CCY. Her last EtOH was about 6 days ago. She has N/V and pain in the epigastric region. However, with IV fluids and pain meds, since admit, she has been able to tolerate clear liquids, and she admits the pain is easing considerably. She has no family hx of recurrent pancreatitis. She has no chest pain or shortness of breath; she does not use tobacco. There has been no abdominal trauma or new medications. Past History Past Medical History: other (EtOH pancreatitis) Past Surgical History: cholecystectomy, hernia repair, Other (Tubal Ligation) Social history: alcohol abuse. denies: smoking, prescription drug abuse Family history: no significant family history Medications and Allergies Allergies Allergy/AdvReac Type Severity Reaction Status Date / Time No Known Allergies Allergy Unverified 04/24/21 02:47 Home Medications Medication Instructions Recorded Confirmed Last Taken Type No Known Home Medications [No 04/24/21 04/24/21 Unknown History Reported Home Medications] Active Meds: Active Medications Acetaminophen (Acetaminophen 325 Mg Tab) 650 mg PO Q4H PRN PRN Reason: Pain MILD(1-3)/Fever >100.5/MERAZ Clonidine HCl (Clonidine Tts 0.2 Mg/24 Hr Patch) 0.2 mg TD Allen ERICKA Famotidine (Famotidine 20 Mg/2 Ml Inj) 20 mg IV BID [facility] Last Admin: 04/26/21 09:31 Dose: 20 mg Documented by: Heparin Sodium (Porcine) (Heparin 5,000 Unit/1 Ml Vial) 5,000 unit SUB-Q Q12HR [facility] Last Admin: 04/26/21 09:31 Dose: 5,000 unit Documented by: Hydralazine HCl (Hydralazine 20 Mg/1 Ml Inj) 10 mg IV Q3H PRN PRN Reason: Blood Pressure Hydromorphone HCl (Hydromorphone 1 Mg/1 Ml Inj) 1 mg IV Q3H PRN PRN Reason: Pain , Severe (7-10) Last Admin: 04/26/21 09:42 Dose: 1 mg Documented by: Dextrose/Sodium Chloride (D5ns) 1,000 mls @ 100 mls/hr IV DIRECT ERICKA Last Admin: 04/26/21 10:28 Dose: 100 mls/hr Documented by: Lorazepam (Lorazepam 2 Mg/Ml Vial) 2 mg IV Q1H PRN PRN Reason: CIWA-Ar 8-15 Metoclopramide HCl (Metoclopramide 10 Mg/2 Ml Inj) 10 mg IV Q6H PRN PRN Reason: Nausea And Vomiting Morphine Sulfate (Morphine 2 Mg/1 Ml Inj) 2 mg IV Q4H PRN PRN Reason: Pain, Moderate (4-6) Last Admin: 04/26/21 04:06 Dose: 2 mg Documented by: Ondansetron HCl (Ondansetron 4 Mg/2 Ml Inj) 4 mg IV Q6H PRN PRN Reason: Nausea And Vomiting Last Admin: 04/26/21 09:42 Dose: 4 mg Documented by: Sodium Chloride (Sodium Chloride 0.9% 10 Ml Flush Syringe) 10 ml IV BID ERICKA Last Admin: 04/26/21 09:32 Dose: 10 ml Documented by: Sodium Chloride (Sodium Chloride 0.9% 10 Ml Flush Syringe) 10 ml IV PRN PRN PRN Reason: LINE FLUSH I HAVE REVIEWED/RECONCILED MEDICATIONS Review of Systems - Review of Systems All systems: negative (as noted in the HPI) Exam - Constitutional Vital Signs: Temp Pulse Resp BP Pulse Ox 98.3 F 101 H 20 128/89 100 04/26/21 11:18 04/26/21 11:18 04/26/21 11:18 04/26/21 11:18 04/26/21 11:18 General appearance: no acute distress - EENT Eyes: PERRL, EOM intact ENT: hearing intact, clear oral mucosa - Neck Neck: supple, normal ROM - Respiratory Respiratory effort: normal Respiratory: bilateral: CTA - Cardiovascular Rhythm: regular Heart Sounds: Present: S1 & S2 Extremities: no ischemia, No edema - Gastrointestinal General gastrointestinal: Present: soft, non-tender, non-distended - Integumentary Integumentary: Present: clear, warm, dry - Neurologic Neurological: alert and oriented x3 - Labs CBC & Chem 7: 04/25/21 04:34 04/26/21 05:01 Lab Results: Laboratory Results - last 24 hr 04/25/21 04/26/21 08:57 05:01 Sodium 137 Potassium 3.1 L Chloride 103.5 Carbon Dioxide 24 Anion Gap 13 BUN 3 L Creatinine 0.4 L Estimated GFR > 60 BUN/Creatinine Ratio 8 Glucose 115 H Calcium 10.4 H Magnesium 1.20 L 1.90 Lipase 433 H 351 H Assessment and Plan - Patient Problems (1) Acute alcoholic pancreatitis Current Visit: Yes Status: Acute Plan to address problem: - The patient has no fever, elevated WBC, abnormal hct/creatinine, and no necrosis on CT; her pancreatitis would be considered mild. - OK to advance to regular diet, and discharge home if tolerated. - Will start MVI therapy given EtOH abuse. - Aggressive IV hydration. - No other recs at present; will sign off; please call if needed.
[2021-04-26] MEDS ORDERED: SIMETHICONE 80 MG CHEW TAB PO PRN (18:25)
[2021-04-26 19:12] LABS: Hemoglobin 6.8 gm/dl (10.1-14.3)
[2021-04-26] MEDS ORDERED: SODIUM CHLORIDE 0.9% 500 ML 500 ML IV ONE (19:32)
[2021-04-27] MEDS ORDERED: SODIUM CHLORIDE 0.9% 500 ML 500 ML ONE (01:11)
[2021-04-27 05:09] LABS: Hematocrit 25.9 % (30.3-42.9); Hemoglobin 7.7 gm/dl (10.1-14.3)
--- NOTE | 2021-04-27 07:42 | Discharge Summary ---
Providers - Providers Date of Admission: 04/24/21 10:54 Date of discharge: 04/27/21 Attending physician: CRISTOFER WHITAKER Primary care physician: OVEN HEATER Hospitalization Reason for admission: Abdominal pain/acute pancreatitis Condition: Fair Pertinent studies: CT abdomen and pelvis; mild acute interstitial edematous pancreatitis No organized collection No other acute abnormality noted Hospital course: 45-year-old female patient with significant past medical history of chronic alcohol abuse and history of chronic and recurrent pancreatitis was admitted through emergency room with abdominal pain nausea vomiting of 3 days duration patient was initially evaluated CT abdomen and pelvis findings consistent with acute pancreatitis Patient was symptomatically managed initially placed n.p.o. status Supportive care with IV fluids pain medications antacids. Patient's lipase levels slowly but gradually improved Evaluated by GI Dr. Bolden, medications optimized, advance diet from clear liquids to full liquids and started regular diet yesterday which patient tolerated. Patient had mild drop in hemoglobin from her baseline H&H to 6.8, received 1 unit of PRBC with improvement of hemoglobin to 7.7. Patient did not have any episodes of hemoptysis or rectal bleeding or melena Today patient is comfortable no new complaints vital signs stable Physical examination prior to discharge did not show any new changes Cleared by GI for discharge and follow-up in the office both with primary care physician and GI per schedule Patient strongly advised to quit alcohol intake, also advised to seek alcohol rehabilitation and help from alcohol Anonymous support group Patient verbalized understanding Patient is hemodynamically and clinically stable at discharge Discharge diagnosis; --Acute pancreatitis Current Visit: Yes Status: Acute lipase levels trending down from [phone] - [phone] Continue clear liquids GI consult and supportive care --Hypokalemia Current Visit: Yes Status: Acute Potassium today 3.1, 40 mEq of KCl every 3 hours x2 Magnesium levels normal limits --Hypomagnesemia; Current Visit: Yes Status: Acute Mg 1.2 yesterday, replaced by magnesium sulfate Levels are normal range today at 1.9 --Anemia Current Visit: Yes Status: Chronic Anemia work-up Closely monitor H&H and transfuse as needed -- Hypercalcemia Current Visit: Yes Status: Acute Calcium levels trending down 12.3 -10.3-10.4 Plenty oral fluids, continue IV hydration Closely monitor electrolytes -- Hyponatremia Current Visit: Yes Status: Acute Resolved , continue IV normal saline , --History of chronic alcohol use; Current Visit: Yes Status: Chronic Advised to quit alcohol intake, Advised to seek alcohol rehabilitation Patient was monitored for withdrawal symptoms And [facility] protocol was in place, however patient did not have any withdrawal symptoms Stable at discharge Disposition: 01 HOME / SELF CARE / HOMELESS Final Discharge Diagnosis (Prints w/discharge instructions): Acute pancreatitis. Chronic alcohol use. Hypokalemia resolved. Hypomagnesemia resolved. Anemia requiring blood transfusion. s/p 1 unit PRBC transfusion. Hypercalcemia improved. Hyponatremia improved Time spent for discharge: 35 min Core Measure Documentation - Palliative Care Palliative Care/ Comfort Measures: Not Applicable - Core Measures Any of the following diagnoses?: none Exam - Constitutional Vitals: Temp Pulse Resp BP Pulse Ox 99.5 F 95 H 20 163/104 100 04/26/21 21:57 04/27/21 03:35 04/27/21 03:35 04/27/21 03:35 04/27/21 04:16 General appearance: Present: no acute distress, well-nourished - EENT Eyes: Present: PERRL, EOM intact - Neck Neck: Present: supple, normal ROM - Respiratory Respiratory effort: normal Respiratory: negative: rales, rhonchi, wheezing - Cardiovascular Rhythm: regular Heart Sounds: Present: S1 & S2 - Extremities Extremities: no ischemia, No edema - Abdominal General gastrointestinal: Present: soft, non-tender, non-distended, normal bowel sounds - Integumentary Integumentary: Present: clear, warm - Musculoskeletal Musculoskeletal: strength equal bilaterally - Psychiatric Psychiatric: appropriate mood/affect, memory intact - Neurologic Neurologic: moves all extremities Plan Activity: no restrictions Diet: regular Additional Instructions: Advised to quit alcohol intake. Recommend alcohol rehabilitation and help from alcohol Anonymous support group if needed. Advised to follow with primary care physician in 3 to 5 days, and GI in 2 to 3 weeks. If you have worsening symptoms contact MD or go to the nearest emergency room as needed Follow up with: GINNY SHIPLEY MD [Primary Care Provider] - 3-5 Days CYDNEY BOLDEN MD [Staff Physician] - 14 Days Forms: Discharge Signature Page Prescriptions: Ferrous Sulfate [Feosol 325 MG tab] 325 mg PO BID #60 tablet Folic Acid [Folvite] 1 mg PO QDAY #30 tablet Magnesium Oxide [Mag-Ox] 400 mg PO QDAY #14 tablet Multivitamin Tab [Multiple Vitamin TAB (Theragran)] 1 each PO QDAY #30 tablet Potassium Chloride 10 meq PO DAILY #7 tablet.er Pantoprazole [Protonix] 40 mg PO QDAY #30 tablet Thiamine HCl [Vitamin B-1] 100 mg PO DAILY #30 tablet Ondansetron [Zofran Odt] 4 mg PO Q8HR #20 tab.[email or web address]
[2021-04-27] MEDS ORDERED: MAGNESIUM SULFATE 3 GM in SODIUM CHLORIDE 0.9% 100 ML IV ONE (08:22)
[2021-04-27 08:29] VITALS: BP 154/103
[2021-04-27] MEDS ORDERED: POTASSIUM CHLORIDE ER 20 MEQ TAB PO SCH (09:00)
[2021-04-27] MEDS ORDERED: MAGNESIUM OXIDE 400 MG TAB PO SCH (09:00)
[2021-04-27] MEDS ORDERED: MAGNESIUM SULFATE 1 GM in SODIUM CHLORIDE 0.9% 50 ML IV ONE (09:30)
[2021-04-27] MEDS ORDERED: MULTIVITAMINS ,THERAPEUTIC TAB PO SCH (10:00)
[2021-04-27] MEDS: FAMOTIDINE 20 MG/2 ML INJ IV SCH (10:12)
[2021-04-27] MEDS: HEPARIN 5,000 UNIT/1 ML VIAL SUB-Q SCH (10:12)
[2021-05-01] MEDS ORDERED: cloNIDine TTS 0.2 MG/24 HR PATCH TD SCH (13:00)
== END 2021-04-27 12:00 | disposition home or self-care (01) | DRG 439 ==
LOC: ED 02:10 → 4A 10:54
PROVIDERS: ADMIT Internal Medicine; ATTEND Internal Medicine
PROC: 30233N1 Transfusion of Nonautologous Red Blood Cells into Peripheral Vein, Percutaneous Approach (ICD-10-PCS; principal; 2021-04-27)
DX: K85.20 Alcohol induced acute pancreatitis without necrosis or infection (principal); E87.1 Hypo-osmolality and hyponatremia; D64.9 Anemia, unspecified; Z90.49 Acquired absence of other specified parts of digestive tract; Z98.51 Tubal ligation status; E87.6 Hypokalemia; E83.42 Hypomagnesemia; E83.52 Hypercalcemia
CPT/HCPCS: 36415; 74177; 80048; 80053; 81001; 82607; 82747; 83550; 83690; 83735; 84132; 85007; 85014; 85018; 85025; 86850; 86900; 86901; 86920; G0378; J1170; J1644; J2060; J2270; J2405; J3475; J3480; J7030; J7040; J7042; P9016; Q9967

== ENCOUNTER 2022-03-27 01:58 | Emergency (ER) | payer SELFPAY ==
[2022-03-27 06:07] LABS: Mean Corpuscular HGB Conc 30 % (30-34); Mean Corpuscular Volume 80 fl (79-97); Platelet Count 213 K/mm3 (140-440); Red Blood Count 4.55 M/mm3 (3.65-5.03)
[2022-03-27 06:13] LABS: Blood Urea Nitrogen 7 mg/dL (7-17); Calcium 10.3 mg/dL (8.4-10.2); Hemolysis Index 12
[2022-03-27 06:16] LABS: BUN/Creatinine Ratio 14
[2022-03-27 06:22] LABS: Hematocrit 36.2 % (30.3-42.9); Hemoglobin 10.7 gm/dl (10.1-14.3); Red Cell Distribution Width 34.6 % (13.2-15.2)
[2022-03-27 07:10] LABS: Anisocytosis 1+; Basophils % (Manual) 0 % (0.0-1.8); Eosinophils % (Manual) 0 % (0.0-4.3); Platelet Estimate Consistent w Auto; Total Cells Counted 100
--- NOTE | 2022-03-27 07:37 | Emergency Department Report ---
ED Alcohol HPI - General Chief Complaint: Psych Stated Complaint: MH/ SI/AMS Time Seen by Provider: 03/27/22 06:17 Source: patient, EMS Mode of arrival: Stretcher Limitations: No Limitations - History of Present Illness Initial Comments: 46-year-old female with a past medical history of alcohol abuse presents to the hospital with acute alcohol intoxication. As per triage nurse patient became combative with EMS states she was going to kill her self. She was treated Benadryl Haldol, and Versed prior to arrival. At time of my evaluation patient is on restraint, sleeping but easily arousable, states she just has a mild headache but otherwise feels okay. - Related Data Previous Rx's Medication Instructions Recorded Last Taken Type Ferrous Sulfate [Feosol 325 MG tab] 325 mg PO BID #60 tablet 04/27/21 Unknown Rx Folic Acid [Folvite] 1 mg PO QDAY #30 tablet 04/27/21 Unknown Rx Magnesium Oxide [Mag-Ox] 400 mg PO QDAY #14 tablet 04/27/21 Unknown Rx Multivitamin Tab [Multiple Vitamin 1 each PO QDAY #30 tablet 04/27/21 Unknown Rx TAB (Theragran)] Ondansetron [Zofran Odt] 4 mg PO Q8HR #20 tab.rapdis 04/27/21 Unknown Rx Pantoprazole [Protonix] 40 mg PO QDAY #30 tablet 04/27/21 Unknown Rx Potassium Chloride 10 meq PO DAILY #7 tablet.er 04/27/21 Unknown Rx Thiamine HCl [Vitamin B-1] 100 mg PO DAILY #30 tablet 04/27/21 Unknown Rx Allergies Allergy/AdvReac Type Severity Reaction Status Date / Time No Known Allergies Allergy Unverified 04/24/21 02:47 ED Review of Systems ROS: Stated complaint: MH/ SI/AMS Other details as noted in HPI Comment: All other systems reviewed and negative ED Past Medical Hx - Past Medical History Previous Medical History?: Yes Hx Asthma: No Additional medical history: Pancreatitis. ETOH abuse - Surgical History Past Surgical History?: Yes Hx Cholecystectomy: Yes Additional Surgical History: . Tubal Ligation. Hernia repair - Social History Smoking Status: Current Every Day Smoker Substance Use Type: Alcohol - Medications Home Medications: Home Medications Medication Instructions Recorded Confirmed Last Taken Type Ferrous Sulfate [Feosol 325 MG tab] 325 mg PO BID #60 tablet 04/27/21 Unknown Rx Folic Acid [Folvite] 1 mg PO QDAY #30 tablet 04/27/21 Unknown Rx Magnesium Oxide [Mag-Ox] 400 mg PO QDAY #14 tablet 04/27/21 Unknown Rx Multivitamin Tab [Multiple Vitamin 1 each PO QDAY #30 tablet 04/27/21 Unknown Rx TAB (Theragran)] Ondansetron [Zofran Odt] 4 mg PO Q8HR #20 tab.rapdis 04/27/21 Unknown Rx Pantoprazole [Protonix] 40 mg PO QDAY #30 tablet 04/27/21 Unknown Rx Potassium Chloride 10 meq PO DAILY #7 tablet.er 04/27/21 Unknown Rx Thiamine HCl [Vitamin B-1] 100 mg PO DAILY #30 tablet 04/27/21 Unknown Rx ED Physical Exam - General Limitations: No Limitations - Other Other exam information: General: No acute distress Head: Atraumatic Eyes: normal appearance ENT: Moist mucous membranes Neck: Normal appearance, no midline tenderness Chest: Clear to auscultation bilaterally CV: Regular rate and rhythm Abdomen: Soft, normal bowel sounds, nontender, nondistended, no rebound or guarding Back: Normal inspection Extremity: Normal inspection, full range of motion Neuro: Alert, no facial asymmetry, speech clear, no gross motor sensory deficit Psych: Appropriate behavior Skin: No rash ED Course Vital Signs 03/27/22 03/27/22 03/27/22 01:58 05:11 09:11 Temperature 98 F Pulse Rate 76 78 74 Respiratory 18 18 16 Rate Blood Pressure 130/80 Blood Pressure 126/87 124/76 [Left] O2 Sat by Pulse 100 100 97 Oximetry 03/27/22 03/27/22 11:21 12:13 Temperature 98.4 F Pulse Rate 76 76 Respiratory 20 20 Rate Blood Pressure Blood Pressure 139/89 130/78 [Left] O2 Sat by Pulse 100 98 Oximetry - Reevaluation(s) Reevaluation #1: 03/27/22 07:37 Will await sobriety to assess patient for suicidal ideation and intent 03/27/22 11:08 Patient allowed to sleep in the ED for several hours. I was informed that family members are in the waiting room wanting to see the patient. Reinterviewed at this time. When questioned about suicidal ideation. She is vague and states "she does not know what she wants to do at this time". Despite repeated questioning patient does not deny suicidal ideation based on recent outburst with complaint of suicidal ideation and unable to discharge patient at this time and have requested mental health evaluation. 1013 signed ED Medical Decision Making - Lab Data Result diagrams: 03/27/22 05:19 03/27/22 05:19 Lab Results 03/27/22 03/27/22 03/27/22 Range/Units 05:19 05:19 05:19 WBC (4.5-11.0) K/mm3 RBC (3.65-5.03) M/mm3 Hgb (10.1-14.3) gm/dl Hct (30.3-42.9) % MCV (79-97) fl MCH (28-32) pg MCHC (30-34) % RDW (13.2-15.2) % Plt Count (140-440) K/mm3 Lymph % (Auto) Add Manual Diff Total Counted Seg Neutrophils % Seg Neuts % (Manual) (40.0-70.0) % Band Neutrophils % % Lymphocytes % (Manual) (13.4-35.0) % Reactive Lymphs % (Man) % Monocytes % (Manual) (0.0-7.3) % Eosinophils % (Manual) (0.0-4.3) % Basophils % (Manual) (0.0-1.8) % Metamyelocytes % % Myelocytes % % Promyelocytes % % Blast Cells % % Nucleated RBC % Seg Neutrophils # Man (1.8-7.7) K/mm3 Band Neutrophils # K/mm3 Lymphocytes # (Manual) (1.2-5.4) K/mm3 Abs React Lymphs (Man) K/mm3 Monocytes # (Manual) (0.0-0.8) K/mm3 Eosinophils # (Manual) (0.0-0.4) K/mm3 Basophils # (Manual) (0.0-0.1) K/mm3 Metamyelocytes # K/mm3 Myelocytes # K/mm3 Promyelocytes # K/mm3 Blast Cells # K/mm3 WBC Morphology Hypersegmented Neuts Hyposegmented Neuts Hypogranular Neuts Smudge Cells Toxic Granulation Toxic Vacuolation Dohle Bodies Pelger-Huet Anomaly Libra Rods Platelet Estimate Clumped Platelets Plt Clumps, EDTA Large Platelets Giant Platelets Platelet Satelliting Plt Morphology Comment RBC Morphology Dimorphic RBCs Polychromasia Hypochromasia Poikilocytosis Anisocytosis Microcytosis Macrocytosis Spherocytes Pappenheimer Bodies Sickle Cells Target Cells Tear Drop Cells Ovalocytes Helmet Cells [place] Bodies Collins Rings [place] Cells Bite Cells Crenated Cell Elliptocytes Acanthocytes (Spur) Rouleaux Hemoglobin C Crystals Schistocytes Malaria parasites Adam Bodies Hem Pathologist Commnt Sodium 145 (137-145) mmol/L Potassium 3.6 (3.6-5.0) mmol/L Chloride 110.2 H (98-107) mmol/L Carbon Dioxide 26 (22-30) mmol/L Anion Gap 12 mmol/L BUN 7 (7-17) mg/dL Creatinine 0.5 L (0.6-1.2) mg/dL Estimated GFR > 60 ml/min BUN/Creatinine Ratio 14 % Glucose 83 (65-100) mg/dL Calcium 10.3 H (8.4-10.2) mg/dL Urine Color (Yellow) Urine Turbidity (Clear) Specific [place] (Man) (1.003-1.030) Ur Protein (Man) (Negative) mg/dL Ur Ketones (Man) (Negative) Urine Bilirubin (Man) (Negative) Urine WBC (Auto) (0.0-6.0) /HPF Urine RBC (Auto) (0.0-6.0) /HPF U Epithel Cells (Auto) (0-13.0) /HPF Urine RBC (Manual) (Negative) Urine Mucus /HPF Salicylates < 0.3 L (2.8-20.0) mg/dL Urine Opiates Screen Urine Methadone Screen Acetaminophen 5.0 L (10.0-30.0) ug/mL Ur Barbiturates Screen Ur Phencyclidine Scrn Ur Amphetamines Screen U Benzodiazepines Scrn Urine Cocaine Screen U Marijuana (THC) Screen Drugs of Abuse Note Plasma/Serum Alcohol (0-0.07) % 03/27/22 03/27/22 03/27/22 Range/Units 05:19 05:19 11:21 WBC 4.4 L (4.5-11.0) K/mm3 RBC 4.55 (3.65-5.03) M/mm3 Hgb 10.7 (10.1-14.3) gm/dl Hct 36.2 (30.3-42.9) % MCV 80 (79-97) fl MCH 24 L (28-32) pg MCHC 30 (30-34) % RDW 34.6 H (13.2-15.2) % Plt Count 213 (140-440) K/mm3 Lymph % (Auto) Software Test Specialist Add Manual Diff Complete Total Counted 100 Seg Neutrophils % Software Test Specialist Seg Neuts % (Manual) 35.0 L (40.0-70.0) % Band Neutrophils % 0 % Lymphocytes % (Manual) 60.0 H (13.4-35.0) % Reactive Lymphs % (Man) 0 % Monocytes % (Manual) 5.0 (0.0-7.3) % Eosinophils % (Manual) 0 (0.0-4.3) % Basophils % (Manual) 0 (0.0-1.8) % Metamyelocytes % 0 % Myelocytes % 0 % Promyelocytes % 0 % Blast Cells % 0 % Nucleated RBC % Not Reportable Seg Neutrophils # Man 1.5 L (1.8-7.7) K/mm3 Band Neutrophils # 0.0 K/mm3 Lymphocytes # (Manual) 2.6 (1.2-5.4) K/mm3 Abs React Lymphs (Man) 0.0 K/mm3 Monocytes # (Manual) 0.2 (0.0-0.8) K/mm3 Eosinophils # (Manual) 0.0 (0.0-0.4) K/mm3 Basophils # (Manual) 0.0 (0.0-0.1) K/mm3 Metamyelocytes # 0.0 K/mm3 Myelocytes # 0.0 K/mm3 Promyelocytes # 0.0 K/mm3 Blast Cells # 0.0 K/mm3 WBC Morphology Not Reportable Hypersegmented Neuts Not Reportable Hyposegmented Neuts Not Reportable Hypogranular Neuts Not Reportable Smudge Cells Not Reportable Toxic Granulation Not Reportable Toxic Vacuolation Not Reportable Dohle Bodies Not Reportable Pelger-Huet Anomaly Not Reportable Libra Rods Not Reportable Platelet Estimate Consistent w auto Clumped Platelets Not Reportable Plt Clumps, EDTA Not Reportable Large Platelets Not Reportable Giant Platelets Not Reportable Platelet Satelliting Not Reportable Plt Morphology Comment Not Reportable RBC Morphology Not Reportable Dimorphic RBCs Not Reportable Polychromasia Not Reportable Hypochromasia Not Reportable Poikilocytosis Not Reportable Anisocytosis 1+ Microcytosis Not Reportable Macrocytosis Not Reportable Spherocytes Not Reportable Pappenheimer Bodies Not Reportable Sickle Cells Not Reportable Target Cells Not Reportable Tear Drop Cells Not Reportable Ovalocytes Not Reportable Helmet Cells Not Reportable [place] Bodies Not Reportable Collins Rings Not Reportable [place] Cells Not Reportable Bite Cells Not Reportable Crenated Cell Not Reportable Elliptocytes Not Reportable Acanthocytes (Spur) Not Reportable Rouleaux Not Reportable Hemoglobin C Crystals Not Reportable Schistocytes Not Reportable Malaria parasites Not Reportable Adma Bodies Not Reportable Hem Pathologist Commnt No Sodium (137-145) mmol/L Potassium (3.6-5.0) mmol/L Chloride (98-107) mmol/L Carbon Dioxide (22-30) mmol/L Anion Gap mmol/L BUN (7-17) mg/dL Creatinine (0.6-1.2) mg/dL Estimated GFR ml/min BUN/Creatinine Ratio % Glucose (65-100) mg/dL Calcium (8.4-10.2) mg/dL Urine Color Yellow (Yellow) Urine Turbidity Clear (Clear) Specific [place] (Man) 1.020 (1.003-1.030) Ur Protein (Man) Negative (Negative) mg/dL Ur Ketones (Man) Negative (Negative) Urine Bilirubin (Man) Negative (Negative) Urine WBC (Auto) 1.0 (0.0-6.0) /HPF Urine RBC (Auto) 1.0 (0.0-6.0) /HPF U Epithel Cells (Auto) 1.0 (0-13.0) /HPF Urine RBC (Manual) Trace (Negative) Urine Mucus Few /HPF Salicylates (2.8-20.0) mg/dL Urine Opiates Screen Urine Methadone Screen Acetaminophen (10.0-30.0) ug/mL Ur Barbiturates Screen Ur Phencyclidine Scrn Ur Amphetamines Screen U Benzodiazepines Scrn Urine Cocaine Screen U Marijuana (THC) Screen Drugs of Abuse Note Plasma/Serum Alcohol 0.28 H (0-0.07) % 03/27/22 Range/Units 11:21 WBC (4.5-11.0) K/mm3 RBC (3.65-5.03) M/mm3 Hgb (10.1-14.3) gm/dl Hct (30.3-42.9) % MCV (79-97) fl MCH (28-32) pg MCHC (30-34) % RDW (13.2-15.2) % Plt Count (140-440) K/mm3 Lymph % (Auto) Add Manual Diff Total Counted Seg Neutrophils % Seg Neuts % (Manual) (40.0-70.0) % Band Neutrophils % % Lymphocytes % (Manual) (13.4-35.0) % Reactive Lymphs % (Man) % Monocytes % (Manual) (0.0-7.3) % Eosinophils % (Manual) (0.0-4.3) % Basophils % (Manual) (0.0-1.8) % Metamyelocytes % % Myelocytes % % Promyelocytes % % Blast Cells % % Nucleated RBC % Seg Neutrophils # Man (1.8-7.7) K/mm3 Band Neutrophils # K/mm3 Lymphocytes # (Manual) (1.2-5.4) K/mm3 Abs React Lymphs (Man) K/mm3 Monocytes # (Manual) (0.0-0.8) K/mm3 Eosinophils # (Manual) (0.0-0.4) K/mm3 Basophils # (Manual) (0.0-0.1) K/mm3 Metamyelocytes # K/mm3 Myelocytes # K/mm3 Promyelocytes # K/mm3 Blast Cells # K/mm3 WBC Morphology Hypersegmented Neuts Hyposegmented Neuts Hypogranular Neuts Smudge Cells Toxic Granulation Toxic Vacuolation Dohle Bodies Pelger-Huet Anomaly Libra Rods Platelet Estimate Clumped Platelets Plt Clumps, EDTA Large Platelets Giant Platelets Platelet Satelliting Plt Morphology Comment RBC Morphology Dimorphic RBCs Polychromasia Hypochromasia Poikilocytosis Anisocytosis Microcytosis Macrocytosis Spherocytes Pappenheimer Bodies Sickle Cells Target Cells Tear Drop Cells Ovalocytes Helmet Cells [place] Bodies Collins Rings [place] Cells Bite Cells Crenated Cell Elliptocytes Acanthocytes (Spur) Rouleaux Hemoglobin C Crystals Schistocytes Malaria parasites Adam Bodies Hem Pathologist Commnt Sodium (137-145) mmol/L Potassium (3.6-5.0) mmol/L Chloride (98-107) mmol/L Carbon Dioxide (22-30) mmol/L Anion Gap mmol/L BUN (7-17) mg/dL Creatinine (0.6-1.2) mg/dL Estimated GFR ml/min BUN/Creatinine Ratio % Glucose (65-100) mg/dL Calcium (8.4-10.2) mg/dL Urine Color (Yellow) Urine Turbidity (Clear) Specific [place] (Man) (1.003-1.030) Ur Protein (Man) (Negative) mg/dL Ur Ketones (Man) (Negative) Urine Bilirubin (Man) (Negative) Urine WBC (Auto) (0.0-6.0) /HPF Urine RBC (Auto) (0.0-6.0) /HPF U Epithel Cells (Auto) (0-13.0) /HPF Urine RBC (Manual) (Negative) Urine Mucus /HPF Salicylates (2.8-20.0) mg/dL Urine Opiates Screen Negative Urine Methadone Screen Negative Acetaminophen (10.0-30.0) ug/mL Ur Barbiturates Screen Negative Ur Phencyclidine Scrn Negative Ur Amphetamines Screen Negative U Benzodiazepines Scrn Positive Urine Cocaine Screen Negative U Marijuana (THC) Screen Negative Drugs of Abuse Note Disclamer Plasma/Serum Alcohol (0-0.07) % - Medical Decision Making 46-year-old female with history of alcohol abuse presents to the hospital psychosis and suicidal ideation as well as acute alcohol intoxication. Patient required IM psychiatric medications prior to ED transport due to uncooperative behavior. During ED stay patient slept and recovered but still endorses suicidal ideation with psychosis therefore 1013 signed. Patient is medically cleared and CIWA protocol initiated since patient will need to be monitored for alcohol withdrawal symptoms while sober Critical Care Time: No Critical care attestation.: If time is entered above; I have spent that time in minutes in the direct care of this critically ill patient, excluding procedure time. ED Disposition Clinical Impression: Psychosis, Alcohol abuse, Suicidal ideation, Medical clearance for psychiatric admission Disposition: 30 STILL A PATIENT Is pt being admited?: No Condition: Stable Time of Disposition: 13:45
[2022-03-27 12:06] LABS: Amphetamine Screen,Urine Negative; Cannabinoid Screen,Urine Negative; Cocaine Screen,Urine Negative; Methadone Screen,Urine Negative; Opiate Screen,Urine Negative
[2022-03-27 12:20] LABS: Benzodiazepines Screen,Urine Positive
[2022-03-27 12:27] LABS: Mucus,Urine FEW /HPF
--- NOTE | 2022-03-27 12:36 | Consultation ---
History of Present Illness - Reason for Consult Consult date: 03/27/22 Reason for consult: mental health evaluation - History of Present Psychiatric Illness Per Note: 46-year-old female with a past medical history of alcohol abuse presents to the hospital with acute alcohol intoxication. As per triage nurse patient became combative with EMS states she was going to kill her self. She was treated Benadryl Haldol, and Versed prior to arrival. At time of my evaluation patient is on restraint, sleeping but easily arousable, states she just has a mild headache but otherwise feels okay. The patient was seen today.Alert and Oriented x4. Cooperative and calm. Pt repo rts ongoing depression. Trigger as medical issues, low hemoglobin and her providers are unable to diagnose. She is tired of her being "stuck" for blood draws. The pt reports that she wanted to . She reports consuming 6 Tylenol PM and 3 cups of vodka "I don't feel myself. I'm tired and wanted to ". The pt states that she could not sleep so she called 911. The pt endorses have auditory hallucinations "my ears hurt". The voices are telling her that her daughter in law wants to kill her. The admits to hearing voices as a child but they worsened over the last year. She reports intermittent SI. Denies visual hallucinations or homicidal ideation. PAST PSYCHIATRIC HISTORY Diagnoses: Alcohol abuse Suicide attempts or Self-harm behavior: Denies Prior psychiatric hospitalizations: Denies Substance Abuse history: Denies Previous psychiatric medications tried: Denies Outpatient treatment: Denies PAST MEDICAL HISTORY: None reported Family Psychiatric History: None reported or documented SOCIAL HISTORY Marital Status: single Living Arrangements: Lives with son and his girlfriend Employment Status: employed Access to guns/weapons: Denies Education: Some 12thgrade History of Abuse: Yes Legal History: Denies REVIEW OF SYSTEMS Constitutional: Negative for weight loss ENT: Negative for stridor Respiratory: Negative for cough or hemoptysis All other systems reviewed and are negative MENTAL STATUS EXAMINATION General Appearance and Behavior: Age appropriate, good hygiene, wearing appropriate clothes, good eye contact, calm, cooperative Cooperation: Participating/engaged Psychomotor Behavior: Psychomotor normal Mood: Depressed Affect and affective range: congruent with stated mood Thought Process: goal directed Thought Content: Suicidal- intermittent Speech: Normal tone and pace Suicidal Ideation: Yes Homicidal Ideation: Denies Hallucinations: Auditory Delusions: None elicited Impulse Control: Normal Insight and Judgment: Limited insight and judgment Memory: Normal Attention: Attentive Orientation: Alert, oriented Assessment and Plan Major depressive disorder Treatment Plan 1013 Continue home Meds Risks, benefits and alternatives of medications discussed with the patient, questions answered and consent obtained from patient. PSYCHOTHERAPY: Supportive psychotherapy provided MEDICAL: Per primary team DELIRIUM PRECAUTIONS: Please re-orient patient frequently, keep lights on during the day, and minimize benzodiazepines and opiates as these medications could worsen patient's confusion. 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 Will follow. Thank you for the consult. Please contact with any questions and/or concerns. Case staffed with Dr. Muhammad Medications and Allergies Medications and Allergies Allergies Allergy/AdvReac Type Severity Reaction Status Date / Time No Known Allergies Allergy Unverified 04/24/21 02:47 Home Medications Medication Instructions Recorded Confirmed Last Taken Type Ferrous Sulfate [Feosol 325 MG tab] 325 mg PO BID #60 tablet 04/27/21 Unknown Rx Folic Acid [Folvite] 1 mg PO QDAY #30 tablet 04/27/21 Unknown Rx Magnesium Oxide [Mag-Ox] 400 mg PO QDAY #14 tablet 04/27/21 Unknown Rx Multivitamin Tab [Multiple Vitamin 1 each PO QDAY #30 tablet 04/27/21 Unknown Rx TAB (Theragran)] Ondansetron [Zofran Odt] 4 mg PO Q8HR #20 tab.rapdis 04/27/21 Unknown Rx Pantoprazole [Protonix] 40 mg PO QDAY #30 tablet 04/27/21 Unknown Rx Potassium Chloride 10 meq PO DAILY #7 tablet.er 04/27/21 Unknown Rx Thiamine HCl [Vitamin B-1] 100 mg PO DAILY #30 tablet 04/27/21 Unknown Rx Mental Status Exam - Vital signs Last Vital Signs Temp 98.4 F 03/27/22 11:21 Pulse 76 03/27/22 12:13 Resp 20 03/27/22 12:13 BP 130/78 03/27/22 12:13 Pulse Ox 98 03/27/22 12:13 Results Result Diagrams: 03/27/22 05:19 03/27/22 05:19 Abnormal lab results 03/27/22 03/27/22 03/27/22 Range/Units 05:19 05:19 05:19 WBC (4.5-11.0) K/mm3 MCH (28-32) pg RDW (13.2-15.2) % Seg Neuts % (Manual) (40.0-70.0) % Lymphocytes % (Manual) (13.4-35.0) % Seg Neutrophils # Man (1.8-7.7) K/mm3 Chloride 110.2 H (98-107) mmol/L Creatinine 0.5 L (0.6-1.2) mg/dL Calcium 10.3 H (8.4-10.2) mg/dL Salicylates < 0.3 L (2.8-20.0) mg/dL Acetaminophen 5.0 L (10.0-30.0) ug/mL Plasma/Serum Alcohol (0-0.07) % 03/27/22 03/27/22 Range/Units 05:19 05:19 WBC 4.4 L (4.5-11.0) K/mm3 MCH 24 L (28-32) pg RDW 34.6 H (13.2-15.2) % Seg Neuts % (Manual) 35.0 L (40.0-70.0) % Lymphocytes % (Manual) 60.0 H (13.4-35.0) % Seg Neutrophils # Man 1.5 L (1.8-7.7) K/mm3 Chloride (98-107) mmol/L Creatinine (0.6-1.2) mg/dL Calcium (8.4-10.2) mg/dL Salicylates (2.8-20.0) mg/dL Acetaminophen (10.0-30.0) ug/mL Plasma/Serum Alcohol 0.28 H (0-0.07) % All other labs normal.
[2022-03-27 12:37] LABS: Color,Urine Yellow (Yellow)
[2022-03-27] MEDS ORDERED: LORazepam 2 MG TAB PO PRN ×2 (13:43)
--- NOTE | 2022-03-28 07:04 | Event Note ---
Date: 03/28/22 Patient is a 46-year-old female that presented to the emergency department for suicidal ideation. Currently on 1013 hold. This morning she states she feels better and denies any current SI. There were no acute events overnight. Constitutional: No fever, chills, weight loss Eyes: No changes in vision, photophobia, ocular pain Cardiovascular: No chest pain, palpitations, edema Respiratory: No dyspnea, cough Gastrointestinal: No nausea, vomiting, diarrhea, abdominal pain Genitourinary: No dysuria, hematuria, polyuria Musculoskeletal: No arthralgia, myalgia Integumentary: No rashes, lesions or change in color Neurological: No focal weakness, headache or numbness Psychiatric: As per HPI General: Alert and oriented x3, no acute distress Head: Normocephalic, atraumatic Cardiac: Regular rate, regular rhythm, no murmurs, gallops or rubs Respiratory: Clear to auscultation bilaterally, no wheezes, rales, normal work of breathing Abdomen: Soft, nontender, nondistended, normal bowel sounds Musculoskeletal: Full range of motion in all extremities, no obvious deformities, no tenderness, normal strength Skin: Warm, dry, intact, appropriate for ethnicity, no rashes or lesions Neurological: Cranial nerves II through XII grossly intact Psych: Normal mood and affect
--- NOTE | 2022-03-28 09:51 | Progress Note ---
Subjective - Reason for Consult Consult date: 03/28/22 Reason for consult: suicidal ideation - Chief Complaint Chief complaint: The patient was seen today. She reports feeling better. She continues to endorse depression, rates as 3/10. She denies any current suicidal ideation and denies hallucinations. REVIEW OF SYSTEMS Constitutional: Negative for weight loss ENT: Negative for stridor Respiratory: Negative for cough or hemoptysis All other systems reviewed and are negative MENTAL STATUS EXAMINATION General Appearance and Behavior: Age appropriate, good hygiene, wearing appropriate clothes, good eye contact, calm, cooperative Cooperation: Participating/engaged Psychomotor Behavior: Psychomotor normal Mood: Depressed Affect and affective range: congruent with stated mood Thought Process: goal directed Thought Content: Reality oriented Speech: Normal tone and pace Suicidal Ideation:Denies Homicidal Ideation: Denies Hallucinations: Denies Delusions: None elicited Impulse Control: Normal Insight and Judgment: Limited insight and judgment Memory: Normal Attention: Attentive Orientation: Alert, oriented Assessment and Plan Major depressive disorder Treatment Plan 1013 Continue home Meds Start Zoloft 25mg po Daily Start Trazodone 50mg po QHS Risks, benefits and alternatives of medications discussed with the patient, questions answered and consent obtained from patient. PSYCHOTHERAPY: Supportive psychotherapy provided MEDICAL: Per primary team DELIRIUM PRECAUTIONS: Please re-orient patient frequently, keep lights on during the day, and minimize benzodiazepines and opiates as these medications could worsen patient's confusion. 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 Will follow. Thank you for the consult. Please contact with any questions and/or concerns. Case staffed with Dr. Muhammad Medications and Allergies Mental Status Exam - Vital signs Last Vital Signs Temp 98.9 F 03/27/22 23:40 Pulse 68 03/27/22 23:40 Resp 16 03/27/22 23:40 BP 134/72 03/27/22 23:40 Pulse Ox 100 03/28/22 03:00
[2022-03-28] MEDS ORDERED: SERTRALINE 25 MG TAB PO SCH (10:00)
[2022-03-28 11:28] VITALS: BP 138/63
[2022-03-28] MEDS ORDERED: traZODone 50 MG TAB PO SCH (22:00)
== END 2022-03-28 19:09 ==
LOC: ED 01:58 → EEVIPCON 01:58 → ED 03-28 19:09
DX: R45.851 Suicidal ideations (principal); F29 Unspecified psychosis not due to a substance or known physiological condition; F10.10 Alcohol abuse, uncomplicated; Z13.30 Encounter for screening examination for mental health and behavioral disorders, unspecified; Z20.822 Contact with and (suspected) exposure to COVID-19; Z90.49 Acquired absence of other specified parts of digestive tract
CPT/HCPCS: 36415; 80048; 80307; 81001; 85007; 85025; 99285; U0003; 80320; G0480